=== PATIENT | female | born 1950 | race Caucasian/White ===

== ENCOUNTER 2016-03-27 20:47 | Inpatient (IN) | payer BC, MEDICARE ==
--- NOTE | ~2016-03-27 | IDS ---
Interim Discharge Summary [facility] [address] [place]. [address] NAME: ELIZA MENJIVAR : 50 STATUS : ADM IN [facility]#: [id number] AGE: 65 ADM/REG DATE : 03/27/16 MR#: [id number] REPORT SERV DATE: 04/01/16 DICTATED BY: RUDDY MARIE DATE: 04/01/16 REPORT STATUS : Draft TRANSCRIBED BY: MODL DATE: 04/01/16 ADMISSION DATE: 03/27/2016 DISCHARGE DATE: 04/01/2016 DISCHARGE DIAGNOSES: 1. Acute respiratory failure, hypercapnic. 2. Chronic obstructive pulmonary disease. 3. Diabetes. The patient required mechanical ventilation and was eventually extubated. She also had atrial fibrillation with RVR, hypothyroidism. Leukocytosis and is on antibiotics, Maxipime and vancomycin. Her white count has improved. The patient is extubated, doing well, able to swallow applesauce. Known to have diastolic heart failure. Her medications are as listed. We are reinitiating amlodipine. She is on a Catapres patch as well. Her last lab values show sodium 144, potassium 3.9, chloride 103, CO2 is 31, BUN 59, creatinine 1.0, glucose 124, magnesium 2.3, calcium 9.0. H and H 10.4 and 32, white count 14,400, on Solu- Medrol, platelet count 310,000. Blood cultures negative. We will transfer to monitor bed. Check procalcitonin, CBC, and BNP levels. Recommend tapering steroid dose. We will restart her Abilify. X-ray is clear. RP/COLBY Ruddy Marie M.D. / [id number] CC: Ibeth Quispe M.D.
--- NOTE | ~2016-03-27 | ECH ---
Echocardiogram [facility] [address] [place]. [address] NAME: ELIZA MENJIVAR : 50 STATUS : ADM IN [facility]#: [id number] AGE: 65 ADM/REG DATE : 03/27/16 MR#: [id number] REPORT SERV DATE: 04/07/16 DICTATED BY: JUDSON PARSON JR. DATE: 04/03/16 REPORT STATUS : Draft TRANSCRIBED BY: COLBY DATE: 04/03/16 ORDERING PHYSICIAN: Dr. Villegas. REFERRING: Farzana Pulido. DATA OF ACQUISITION: 04/03/2016. INDICATIONS: Atrial fibrillation, respiratory failure, history of coronary artery disease. TECH: Mane Dominguez is the RDCS. 2-D INTERPRETATION: M-mode and 2-dimensional echocardiography were performed. The left atrium was dilated at 4.7 cm compared to an aortic root diameter of 3 cm. The left ventricle was normal in size measuring 4.8 cm in end-diastole and 3.4 cm in end-systole. Overall, there appeared to be normal left ventricular systolic function without regional wall motion abnormality. Ejection fraction approximately 55%. The aortic valve was trileaflet. Mildly sclerotic mitral valve appeared to be structurally normal. The remaining cardiac valves appeared to be structurally normal. There was a trace pericardial effusion without echocardiographic evidence of hemodynamic compromise. No pleural effusion could be seen. DOPPLER/COLOR FLOW: Conventional and Doppler color flow imaging were performed. The patient was noted to be in atrial fibrillation. No A-wave was noted. There was physiologic mitral insufficiency. There was tricuspid insufficiency of a trace degree. Peak right ventricular systolic pressure was not obtained. Peak gradient across the aortic valve measured 10 mmHg. There was no aortic insufficiency. CONCLUSION: NORMAL LEFT VENTRICULAR SYSTOLIC FUNCTION. THE PATIENT WAS NOTED TO BE IN ATRIAL FIBRILLATION. NO SIGNIFICANT VALVULAR DISEASE WITH NO EVIDENCE OF AORTIC STENOSIS NOR AORTIC INSUFFICIENCY. PULMONARY HYPERTENSION WAS NOT NOTED. /COLBY Judson Parson Jr., M.D. / [id number] CC: Isi Beard
--- NOTE | ~2016-03-27 | IDS ---
Interim Discharge Summary [facility] [address] [place]. [address] NAME: ELIZA MENJIVAR : 50 STATUS : ADM IN PAT#: [id number] AGE: 65 ADM/REG DATE : 03/27/16 MR#: [id number] REPORT SERV DATE: 04/07/16 DICTATED BY: EVA STUBBS DATE: 04/07/16 REPORT STATUS : Draft TRANSCRIBED BY: MODL DATE: 04/07/16 ADMISSION DATE: 03/27/2016 DISCHARGE DATE: CURRENT HOSPITAL DIAGNOSES: 1. Hypercarbic hypercapnic respiratory failure, resolved. 2. Diabetes. 3. Common variable immunoglobulin deficiency. 4. Atrial fibrillation. 5. Chronic obstructive pulmonary disease. 6. Diastolic congestive heart failure. 7. Coronary artery disease. 8. Obstructive sleep apnea. CONSULTATIONS: Pulmonary and Critical Care and Cardiology. PROCEDURES: 1. Echocardiogram done on 04/03/2016 showing normal LV systolic function. No significant valvular disease. No evidence of aortic stenosis or aortic insufficiency. Pulmonary hypertension, not identified. EF 55%. 2. CT scan of the brain done on 03/27/2016, showing stable mild diffuse cerebral involutional changes and subtle deep white matter chronic microvascular ischemic changes. Otherwise, no acute intracranial abnormality, effusion right mastoid air cells, no air-fluid level or destruction of the underlying bone septa consistent with an indeterminate age mastoiditis pattern. CURRENT PHYSICAL FINDINGS AND HISTORY OF PRESENT ILLNESS: Please see initial dictated H and P by Dr. Quispe on 03/28/2016 and interim summary by Dr. Marie on 04/01/2016. The patient came to the floor on 04/02/2016, and I will dictate from that point. In brief, the patient has above medical history, who has had multiple previous hospitalizations for respiratory issues, was discharged from the ICU after being found unresponsive at home and required intubation. She was discharged to the floor after successfully being extubated. On 04/02/2016, we began titrating down her IV steroids. Her Nance was discontinued. Electrolytes were checked. She was noted to have atrial fibrillation, so a Cardizem drip was initiated. Echocardiogram and EKG were requested. Heparin protocol was initiated and Dr. Parson, her general farmer, was consulted. She was still receiving antibiotics at that time. Rythmol was initiated and p.o. digoxin and electrolyte protocol, which she responded to. Later that day, she was transitioned from heparin to Eliquis and her Rythmol was increased. Her Plavix was held as she continued to do well. On 04/03/2016, repeat CBC and procalcitonin were done, and her white count was 24,000, was 26,000 on admission, this was felt most likely due to her steroids as her procalcitonin on 04/02/2016 was 0.05. Her antibiotics, however, were continued. She was afraid that she may be weak and required some rehab, so PT was consulted. Her Solu-Medrol was further decreased. On 04/04/2016, Cardiology signed off. She had titrated off the Cardizem drip, was responding to p.o. medications with rate control. She complained of some constipation and milk of Mag and Dulcolax were given. She was transitioned over to p.o. prednisone, and her steroids were Interim Discharge Summary [address] [address] NAME: ELIZA MENJIVAR FATOUMATA : 50 STATUS : ADM IN PAT#: [id number] AGE: 65 ADM/REG DATE : 03/27/16 MR#: [id number] REPORT SERV DATE: 04/07/16 DICTATED BY: EVA STUBBS DATE: 04/07/16 REPORT STATUS : Draft TRANSCRIBED BY: COLBY DATE: 04/07/16 titrated down. Her vancomycin was discontinued on 04/04/2016 and her Cardizem drip was discontinued. When it became apparent she would need rehab placement, Discharge Planning was consulted. Her only other complaint at that time was some stiffness in her left shoulder. She had some mild hyperglycemia on the evening of 04/05/2016, which was treated. On 04/06/2016, she was re-evaluated and still having no significant problems. On 04/07/2016, her respiratory status is stable. Her steroids and insulin coverage will be further decreased. We will stop her Maxipime as there are no signs of recurrent infection. Her leukocytosis appears secondary to the steroids. She is currently awaiting mcc placement. PELONF/COLBY Eva Stubbs M.D. / [id number] CC: Ibeth Quispe M.D.
--- NOTE | ~2016-03-27 | CN ---
Consultation Report [address] [place] [place]. [address] NAME: ELIZA MENJIVAR : 50 STATUS : ADM IN PAT#: [id number] AGE: 65 ADM/REG DATE : 03/27/16 MR#: [id number] REPORT SERV DATE: 04/03/16 DICTATED BY: JUDSON PARSON JR. DATE: 04/02/16 REPORT STATUS : Draft TRANSCRIBED BY: MODKierra DATE: 04/02/16 CONSULTATION NOTE. DATE OF CONSULTATION: 04/02/2016 REASON FOR CONSULTATION: Atrial fibrillation with a rapid ventricular rate. HISTORY OF PRESENT ILLNESS: The patient is a 65-year-old white female with history of long- standing emphysema with continued tobacco use against medical advice, hypertension, history of coronary artery disease, who presented with hypertensive exacerbation and chronic obstructive pulmonary disease exacerbation with hypercapnic respiratory failure. She required intubation, and subsequently has been extubated and transported to the floor; however, last evening and early this morning she experienced several runs of atrial fibrillation with a rapid ventricular response. Of note, she has experienced atrial fibrillation in the past for which she has been placed on medication; however, she has largely been noncompliant. She has canceled many of her last appointments with us and during her last visit reported that she had not been taking her medication because she "felt the medication was not right for her." She does wear supplemental oxygen at home and wears supplemental oxygen while smoking. REVIEW OF SYSTEMS: A 10-point review of systems, otherwise unremarkable. ALLERGIES: TO CODEINE AND SULFACETAMIDE SODIUM. HOME MEDICATIONS: Home medications at home currently include: 1. Aspirin. 2. Clopidogrel. 3. Digoxin. 4. Imdur. 5. Klor-Con. 6. Labetalol. 7. Lasix. 8. Losartan. 9. Magnesium oxide. 10.Simvastatin. 11.Triamterene. 12.Hydrochlorothiazide. 13.Zetia. 14.Abilify. 15.Advair. 16.Albuterol. 17.Citalopram. 18.Cymbalta. 19.Doxazosin. Consultation Report [facility] [address] [place]. [address] NAME: ELIZA MENJIVAR : 50 STATUS : ADM IN PAT#: [id number] AGE: 65 ADM/REG DATE : 03/27/16 MR#: [id number] REPORT SERV DATE: 04/03/16 DICTATED BY: JUDSON PARSON JR. DATE: 04/02/16 REPORT STATUS : Draft TRANSCRIBED BY: INVIDI TechnologiesKierra DATE: 04/02/16 20.Estrogen patch. 21.Fluticasone propionate. 22.Gabapentin. 23.Humalog. 24.Lantus. 25.Lorazepam. 26.Lyrica. 27.Metformin. 28.Singulair. 29.Naprosyn. 30.Protonix. 31.Spiriva. 32.Synthroid. 33.Tramadol. PAST MEDICAL HISTORY: Past medical history is notable for: 1. History of coronary artery disease. 2. Hypertension. 3. Obesity. 4. Prior diastolic heart failure. 5. Mixed dyslipidemia. 6. Venous stasis dermatitis. 7. Diabetes mellitus, insulin dependent. 8. Anxiety. 9. Depression. 10.Asthma. 11.Hypothyroidism. 12.Pernicious anemia. 13.Paroxysmal atrial fibrillation. PAST SURGICAL HISTORY: Past surgical history is notable for: 1. CAB. 2. Total knee replacement. 3. Hysterectomy. 4. PCI. 5. Left leg and knee surgery. 6. Left hip replacement x5. SOCIAL HISTORY: Notable for continued tobacco use against medical advice, approximately 1/2 to 2 packs daily. FAMILY HISTORY: Notable for heart disease. PHYSICAL EXAMINATION: VITAL SIGNS: Temperature is 97.6, pulse 112, respirations 19, and blood pressure is 150/69 Consultation Report [address] [place]. [address] NAME: ELIZA MENJIVAR : 50 STATUS : ADM IN [facility]#: [id number] AGE: 65 ADM/REG DATE : 03/27/16 MR#: [id number] REPORT SERV DATE: 04/03/16 DICTATED BY: JUDSON PARSON JR. DATE: 04/02/16 REPORT STATUS : Draft TRANSCRIBED BY: MODKierra DATE: 04/02/16 mmHg. HEENT: Unremarkable. NECK: Supple without jugular venous distention or carotid bruits. CARDIOVASCULAR: Irregular rate and irregular rhythm. LUNGS: Notable for wheezes with diminished breath sounds at the bases. ABDOMEN: Soft. Normoactive bowel sounds. EXTREMITIES: 1+ with no pedal edema. NEUROLOGIC: She is grossly intact. LABORATORY DATA: EKG is notable for atrial fibrillation, rapid ventricular rate, nonspecific ST-T wave abnormality. Prior EKG notable for sinus rhythm, short IN interval, LVH. Sodium 142, potassium 5.4, chloride 105, bicarbonate 24, BUN 56, creatinine 0.9, glucose of 195, calcium 9.5, magnesium 2.1, and phosphorus 3.1. H and H of 11.7 and 36.1, white count 13.3, and platelet count 384,000. BNP is 133. Troponin of less than 0.02. TSH of 2.7. Chest x-ray is unremarkable. IMPRESSION: 1. A 65-year-old white female, with continued tobacco use with a history of severe emphysema with recent hypercapnic respiratory failure. 2. Known coronary artery disease, with no evidence of current ischemia. 3. Known normal LV systolic function with chronic diastolic heart failure. 4. Paroxysmal atrial fibrillation. PLANS AND RECOMMENDATIONS: 1. Rythmol 150 mg t.i.d. 2. Wean intravenous diltiazem as able. 3. Electrolyte protocol. 4. Agree with heparin. We will begin Eliquis 5 mg p.o. b.i.d. in near future. I have discussed risks of stroke versus risk of bleeding on factor X agent. 5. Tobacco cessation. 6. Further recommendations to follow. We will follow along with you. THOMPSON/COLBY Judson Parson Jr., M.D. / [id number] Consultation Report [address] [address] NAME: ELIZA MENJIVAR : 50 STATUS : ADM IN PAT#: [id number] AGE: 65 ADM/REG DATE : 03/27/16 MR#: [id number] REPORT SERV DATE: 04/03/16 DICTATED BY: JUDSON PARSON JR. DATE: 04/02/16 REPORT STATUS : Draft TRANSCRIBED BY: COLBY DATE: 04/02/16 CC: Isi Beard FNP
--- NOTE | ~2016-03-27 | HP ---
History And Physical [facility] [address] [place]. [address] NAME: ELIZA MENJIVAR : 50 STATUS : ADM IN [facility]#: [id number] AGE: 65 ADM/REG DATE : 03/27/16 MR#: [id number] REPORT SERV DATE: 03/28/16 DICTATED BY: COREY QUISPE DATE: 03/28/16 REPORT STATUS : Draft TRANSCRIBED BY: MODL DATE: 03/28/16 DATE OF ADMISSION: 03/27/2016 HISTORY OF PRESENT ILLNESS: This is a 65-year-old patient well known to our service, who has severe COPD and comes in frequently with exacerbation and hypercapnic respiratory failure, requiring intubation. Today, apparently, she was found unresponsive by her , who thought she had a low blood sugar and attempted to give her Clarke-Aid orally. She was not waking up. She was then brought into the emergency room and was found to have copious amounts of Clarke-Aid in her oropharynx. Apparently, this was suctioned and the patient was started on BiPAP to which she did not respond and then eventually went on to be intubated once again. Family is not available for any further history. As far as is known, the patient did not have any productive cough, fevers, nausea, vomiting, or diarrhea associated with her presentation. The patient was then transported to the CVICU for further care. While in the emergency room, the patient got clindamycin and Rocephin. ALLERGIES: ARE TO SULFA TO WHICH SHE DEVELOPED A RASH. CODEINE THAT CAUSES HER TO HYPERVENTILATE. HOME MEDICATIONS: Abilify 5 mg at bedtime, enteric-coated aspirin 81 mg at bedtime daily, carvedilol 3.125 mg twice daily, Plavix 75 mg daily, vitamin B12 1000 mg IM q.month, digoxin 0.125 mg daily, Cymbalta 60 mg p.o. daily, Neurontin 600 mg twice daily, hydrocodone 10 mg one to two tablets every 4 hours as needed, Imdur 60 mg daily, Synthroid 50 mcg daily, Cozaar 100 mg at bedtime, Glucophage 1000 mg twice daily, Singulair 10 mg daily, Crestor 5 mg daily, Spiriva one inhalation daily, Maxzide 37.5/25 one tablet daily, and then she does use home inhalers and receive IVIG infusions as an outpatient. The time of her last infusion is unknown. PAST MEDICAL HISTORY: Includes severe COPD, on chronic home O2. Diastolic CHF, coronary artery disease, status post [address] Parson. Hypothyroidism, hyperlipidemia, bipolar disorder, obstructive sleep apnea, noncompliant with CPAP, rheumatoid arthritis, type 2 diabetes mellitus. Status post spiral displaced humeral fracture in 2016, status post ORIF for that. History of common variable immunodeficiency. SURGICAL HISTORY: Status post hysterectomy, left hip surgery, knee surgery, bilateral carpal tunnel release. PAST MEDICAL HISTORY: The patient has a history of hyponatremia, urinary tract infection and sepsis, as well as pneumonia. SOCIAL HISTORY: The patient continues to smoke. She is , lives at home with her , has three children and five grandchildren. There is no history of any alcohol abuse. FAMILY HISTORY: Significant for congestive heart failure, COPD, diabetes mellitus, and breast cancer. History And Physical [address] [address] NAME: ELIZA MENJIVAR : 50 STATUS : ADM IN [facility]#: [id number] AGE: 65 ADM/REG DATE : 03/27/16 MR#: [id number] REPORT SERV DATE: 03/28/16 DICTATED BY: COREY QUISPE DATE: 03/28/16 REPORT STATUS : Draft TRANSCRIBED BY: COLBY DATE: 03/28/16 REVIEW OF SYSTEMS: Could not be obtained from the patient since she is orally intubated. PHYSICAL EXAMINATION: VITAL SIGNS: Heart rate is 80, sinus rhythm, blood pressure 111/53, respiratory rate is 12 to 14, temperature is 99.4 axillary. The patient currently is on 2 mcg per minute of Levophed. SKIN: Warm and dry. HEENT: Head is atraumatic and normocephalic. Pupils are equal, round, and reactive to light and accommodation. Extraocular eye movements are intact. Sclerae anicteric. Conjunctivae are pink. Nasal mucosa within normal limits. Oral mucosa is intubated. NECK: Supple without JVD, lymphadenopathy, or thyromegaly. There is an orogastric tube present. LUNGS: Show diminished breath sounds at the bases. Occasional crackles. No wheezing. CARDIAC: Reveals a regular rate and rhythm. No significant murmurs. BREASTS: Symmetrical. ABDOMEN: Obese, nontender. Bowel sounds are present, but diminished. No organosplenomegaly is appreciated. There is no pain to palpation of the abdomen. Nance is in place. RECTAL: Deferred. EXTREMITIES: Without cyanosis, clubbing. There is slight edema of the lower extremities, some mild erythema. A lot of these changes are chronic and might be some early evidence of cellulitis. NEUROLOGIC: The patient will respond to deep noxious stimuli and will follow commands. Overall, her neurologic exam is nonfocal. LABORATORY AND DIAGNOSTIC DATA: ABG in the emergency room; pH 7.18, pCO2 of 73, pO2 of 66, bicarbonate 26, 50% FiO2 and this was on BiPAP 20/8, rate of 18. Sodium 136, potassium 4.5, chloride 98, bicarb 26, BUN 21, creatinine 1.14. Blood sugar 150. Troponin less than 0.02. Lactic acid level is 1.2. UA is clear. White cell count is 26,000, hemoglobin 10, hematocrit 34, and platelet count 333,000, bands 21, procalcitonin 0.21. CT scan of the head shows no evidence of CVA or bleed. PT, INR, and PTT are still pending. Urinalysis is unremarkable. BNP 133. TSH 2.7, free T4 of 1.13. Influenza A and B swab is negative. EKG is without ST-segment elevation or depression. ASSESSMENT AND PLAN: 1. This is a 65-year-old patient with severe chronic obstructive sleep apnea, multiple admissions for chronic obstructive pulmonary disease exacerbation, who now presents with acute on chronic hypercapnic, hypoxic respiratory failure, etiology not exactly clear. In any event, the patient required intubation, mechanical ventilation. She will be started on Solu-Medrol, and continued on bronchodilator protocol. There is a possibility of aspiration pneumonia and so she will be started on cefepime and vanco. Sputum cultures have been sent. 2. Diabetes mellitus. Sliding insulin scale. 3. Known coronary artery disease. Diastolic dysfunction. Follow closely on volume status. 4. Transient hypotension could be related to sepsis and/or low volume. We will continue to volume resuscitate the patient, wean the Levophed for MAP greater than 65 and ask History And Physical [address] [place]. [address] NAME: MENJIVARELIZABACILIO HAM : [birth year] STATUS : ADM IN [facility]#: [id number] AGE: 65 ADM/REG DATE : 03/27/16 MR#: [id number] REPORT SERV DATE: 03/28/16 DICTATED BY: COREY QUISPE DATE: 03/28/16 REPORT STATUS : Draft TRANSCRIBED BY: COLBY DATE: 03/28/16 for a PICC line placement later this morning. 5. Hyperlipidemia. Continue Crestor. 6. Continue Plavix and check digoxin level. 7. Deep vein thrombosis prophylaxis will be with Lovenox. 8. GI prophylaxis will be with Protonix. 9. Common variable immunodeficiency. Check with family when the last IVIG was given. 10.B12 deficiency, the patient gets monthly B12 shots. The patient is in critical condition, requiring intubation and mechanical ventilation and now has hypotension and requires frequent vent management for respiratory failure. Close neurologic monitoring. May be exhibiting early signs of septic shock. She is in need of vasoactive manipulations, volume resuscitation, frequent ventilator manipulation, hemodynamic assessment, and assessment and treatment of complex metabolic derangement. /COLBY Corey Quispe M.D. / [id number] CC: Corey Quispe M.D.
--- NOTE | ~2016-03-27 | DS ---
Discharge Summary [facility] [address] [place]. [address] NAME: ELIZA MENJIVAR : 50 STATUS : DIS IN PAT#: [id number] AGE: 65 ADM/REG DATE : 03/27/16 MR#: [id number] REPORT SERV DATE: 04/10/16 DICTATED BY: CELESTINO BLACKMON DATE: 04/09/16 REPORT STATUS : Draft TRANSCRIBED BY: MODL DATE: 04/09/16 ADMISSION DATE: 03/27/2016 DISCHARGE DATE: 04/09/2016 DISCHARGE DIAGNOSES: 1. Acute hypercapnic respiratory failure. 2. Acute chronic obstructive pulmonary disease exacerbation. 3. Atrial fibrillation rapid ventricular response. 4. Chronic diastolic heart failure. 5. Ongoing tobacco use obstructive sleep apnea. 6. Common variable immunodeficiency. 7. Diabetes type 2 with a hemoglobin A1c of 5.9. 8. History of coronary artery disease. DISCHARGE MEDICATIONS: Amlodipine 5 mg daily, Abilify 5 mg at bedtime, aspirin 81 mg daily, Coreg 3.125 mg twice a day, digoxin 125 mcg daily, Cymbalta 60 mg daily, gabapentin 600 mg p.o. twice a day, Synthroid 50 mcg daily, insulin NovoLog level 2 sliding scale before meals and at bedtime, losartan 50 mg daily, Singulair 10 mg daily, Imdur ER 60 mg daily, MiraLAX one packet twice a day, Rythmol 225 mg every eight hours, Catapres patch 0.2 mg topically every seven days, prednisone 20 mg daily for five more days, albuterol nebulizers every four hours p.r.n., Dulera 200/5 five puffs inhaled twice a day, Levemir 25 units subcutaneously twice a day, Tylenol 650 mg p.r.n., Mylanta p.r.n., Dulcolax 10 mg tablets p.r.n. for constipation hypoglycemia protocol, metformin 1000 mg twice a day, [place] 10/325 one tablet every four hours p.r.n. for pain, vitamin B12 1000 mcg every 30 days, Crestor 5 mg daily, Spiriva one capsule inhaled daily, triamterene/hydrochlorothiazide 37.5/25 one tablet daily. HISTORY OF PRESENT ILLNESS: Pleasant 65-year-old white female, originally admitted by the [facility]. Please see the initial H and P of Dr. Ibeth Quispe as the patient was intubated. Please see the interim discharge summary of Dr. Carlos Marie as the patient was transferred to the hospitalist Service and care was assumed by Dr. Stan Villegas beginning on 04/02/2016. CONSULTS DURING THIS ADMISSION: Include Cardiology, Dr. Elsa Parson as well. HOSPITAL COURSE: The patient's respiratory status did continue to improve and her oxygen was able to be weaned down. Please also see the interim discharge summary of Dr. Stan Villegas as this discharge summary will cover the dates of 04/08/2016 to 04/09/2016. The patient was able to be weaned down to room air, was doing quite well. Disposition was to transfer to [facility] to have follow ups with her ferry engineer, Dr. Parson, in four weeks, to follow up with her primary care as scheduled, and follow up with tamping machine operator, Dr. Domínguez, as scheduled. Counseled the need for complete tobacco cessation, which the patient was in agreement with. The patient became approved for transfer to [facility] on 04/09/2016, and was discharged there with the above medication regimen, followup plan and of note, she had an echocardiogram showing a normal left ventricular systolic function. No significant valvular disease. No evidence of aortic stenosis. Some pulmonary hypertension was noted. Ejection fraction of 55%. Discharge Summary [address] [address] NAME: ELIZA MENJIVAR : 50 STATUS : DIS IN PAT#: [id number] AGE: 65 ADM/REG DATE : 03/27/16 MR#: [id number] REPORT SERV DATE: 04/10/16 DICTATED BY: CELESTINO BLACKMON DATE: 04/09/16 REPORT STATUS : Draft TRANSCRIBED BY: MODL DATE: 04/09/16 Greater than 30 minutes was spent on this discharge for medication teaching, followup planning, and further disposition. [facility] [place] Celestino Blackmon NP / [id number] CC: Oralia Hopkins M.D.
--- NOTE | ~2016-03-27 | HP ---
History And Physical [place] [id number] [place] [address] NAME: ELIZA MENJIVAR : 50 STATUS : ADM IN [facility]#: [id number] AGE: 65 ADM/REG DATE : 03/27/16 MR#: [id number] REPORT SERV DATE: 03/28/16 DICTATED BY: COREY QUISPE DATE: 03/28/16 REPORT STATUS : Draft TRANSCRIBED BY: MODL DATE: 03/28/16 DATE OF ADMISSION: 03/27/2016 ADDENDUM: Charge for critical care time will be 40 minutes, commencing at 2 a.m. and ending at 02:55 a.m. /COLBY Corey Quispe M.D. / [id number] CC: Corey Quispe M.D.
[2016-03-27 18:52] LABS: ALLENS TEST Pos; BE (BASE EXCESS) -0.9 MEQ/L (0 +/- 2.5); CARBOXYHEMOGLOBIN 4.9 % (0-3); DEVICE Nasal Cannula 4 lpm; HCO3 (ACTUAL BICARBONATE) 27.8 MEQ/L (23-27); HEMOBLOGIN CONTENT 11.5 G/DL (12-16); INSTRUMENT SERIAL # 8087; METHEMOGLOBIN 0.2 % (0-3); OPERATOR ID 17589; PCO2 (CO2 TENSION) 68 MMHG (35-45); PO2 (O2 TENSION) 59 MMHG (79-93); SAMPLE Arterial; pH 7.23 (7.37-7.43)
[2016-03-27 20:09] LABS: BE (BASE EXCESS) -2.8 MEQ/L (0 +/- 2.5); BIPAP 20/8 cm.H2O; CARBOXYHEMOGLOBIN 4.6 % (0-3); HCO3 (ACTUAL BICARBONATE) 26.7 MEQ/L (23-27); HEMOBLOGIN CONTENT 11.3 G/DL (12-16); INSTRUMENT SERIAL # 8087; METHEMOGLOBIN 0.2 % (0-3); OPERATOR ID 23712; PCO2 (CO2 TENSION) 73 MMHG (35-45); PO2 (O2 TENSION) 66 MMHG (79-93); SAMPLE Arterial; pH 7.18 (7.37-7.43)
[~2016-03-27 20:47] MED LIST: *UNABLE1; *UNABLE2; ABILIFY10 PO; ABILIFY5 PO; ADVAIR INH; ADVAIR100 INH; ADVAIR250 INH; ALBUTEROL 2.5 MG/3 ML INH; ALEVE220 MG PO; ANOROELLIPTA INH; ASA5GR PO; ASAB PO; ASABAYER PO; ASAEC PO; ATV1 PO; AUG875 PO; B1100 PO; B121000P IM; B121000P IM/SC; B121000P SC; CAP25 PO; CARD30 PO; CARDIZEM LA120 MG PO; CARDURA8 MG PO; CATAPRES3; CATAPRES3 TOP; CEFT2 PO; CEFT5 PO; CELEXA20 PO; CELEXA40 MG PO; CIP5 PO; CLONIDINE PATCH TOP; COREG3 PO; COVARYX PO; COZ25 PO; COZ50 PO; COZAAR100 MG PO; CRESTOR5 MG PO; CYMBALTA60 PO; Cardizem; DIGITEK0.125 MG PO; DIGITEK0.25 MG PO; DILACOR XR PO; DILT-XR120 MG PO; DOLOPHINE10 MG PO; DUONEB INH; Deltasone; ENDOCET1 TA3 PO; ENDOCET1 TA4 PO; ENDOCET1 TAB PO; ESTRATESHS PO; FISH OIL 500MG PO; FISH-EPA1000 MG PO; FLONASE NAS; FLONASE NASAL S16 GM NAS; FLUCON150 PO; GLUCOPHAGE1000 MG PO; GLUCPH PO; HABIT14 TOP; HALF81 PO; HUMALOGPEN SC; HYCODAN1 M1 PO; IMDUR30 PO; IMDUR60 PO; ISORDIL; ISORDIL10 PO; K-TABS10 MEQ PO; KADIANSR30 PO; KDUR10 PO; KLOR-CON 1010 MEQ PO; KLOR-CON M1010 MEQ PO; L20 PO; L40 PO; L80 PO; LAN125 PO; LAN25 PO; LANTUS SC; LANTUSCART SC; LEVOTHYROXIN50 MCG PO; LEXAPRO; LEXAPRO20 PO; LISINOPRIL40 MG PO; LOP50 PO; LOVAZA1 GM PO; LYRICA75 PO; Lanoxin; Lasix; Lexapro; MAGOX4 PO; MAX25 PO; MICRO-K10 MEQ PO; MOBIC15 MG PO; MORPHINE; MSCONT15 PO; MUCINEX DM1 TAB OR; MUCINEX600 MG PO; MULTIPLE VIT PO; MULTIVIT/MIN PO; MULTIVITAMI1 PO; MVI PO; Mobic; NAP500 PO; NEUR100 PO; NEUR300 PO; NEUR600 PO; NEUR800 PO; NITROSPRAY SL; NITROSTAT0.4 MG SL; NORCO1 TAB PO; NORV10 PO; NORV5 PO; NYS500UDL PO; Neurontin PO; OMEGA 3550 MG PO; P1 PO; P10 PO; PATANOL OPH; PCET PO; PERCOCET1 TA4 PO; PLAVIX PO; PLAVIX300 MG PO; POTASSIUM CHLORIDE; POTASSIUM CHLORIDE PO; PR25 PO; PRAVAC PO; PREV30 PO; PRILO PO; PRIN10 PO; PRIN20 PO; PROMEGA PO; PROTONIX PO; PROVENTIL IN; PROVENTSOL INH; PROZ10 PO; PROZAC40 MG PO; PULRESP.5 PO; Percocet; Plavix; Potassium; Prinivil; Prozac; SAVELLA50 MG PO; SIMVASTATIN PO; SINGULAIR1 PO; SINGULAIR5 PO; SPIRIVA INH; STERAPRED DS10 MG; SYN.05 PO; Singulair; TEKTURNA300 MG PO; TRAN200 PO; ULTRAM50 PO; V5 PO; VENTOLIN HFA INH; VOLTAREN1 % TOP; VYTORIN 10/20 T1 TAB PO; XANAX1 MG PO; XYZAL5 MG PO; Z5 PO; ZEBETA5 PO; ZETIA PO; ZIAC10 PO; ZOCOR10 PO; ZOCOR20 PO; ZOCOR40 PO; Zocor; [UNRECOGNIZED DRUG - CODE] PO; [UNRECOGNIZED DRUG - OTHER]
[2016-03-27 20:53] LABS: WBC (NOT ORDERED) (RFLEX) 0 (0-5)
[2016-03-27 21:02] LABS: CALCIUM, SERUM 8.8 MG/DL (8.5-10.4); CHEST PAIN PROFILE TAT 0 Hrs 20 Mins; CHLORIDE, SERUM 98 MMOL/L (96-112); CO2 (CARBON DIOXIDE) 26 MMOL/L (24-34); CREATININE 1.14 MG/DL (0.55-1.02); GFR AFRICAN AMERICAN 58 ML/MIN (>=60); GFR NON AFRICAN AMERICAN 50 ML/MIN (>=60); POTASSIUM, SERUM 4.5 MMOL/L (3.5-5.3); SODIUM, SERUM 136 MMOL/L (135-148); TROPONIN I <0.02 NG/ML (<0.05)
[2016-03-27] MEDS ORDERED: PLAVIX PO (21:02)
[2016-03-27] MEDS ORDERED: ABILIFY5 PO (21:02)
[2016-03-27] MEDS ORDERED: COREG3 PO (21:02)
[2016-03-27] MEDS ORDERED: HALF81 PO (21:02)
[2016-03-27 21:03] LABS: BUN (BLOOD UREA NITROGEN) 21 MG/DL (6-23); GLUCOSE, SERUM 150 MG/DL (60-99)
[2016-03-27] MEDS ORDERED: IMDUR60 PO (21:03)
[2016-03-27] MEDS ORDERED: B121000P IM (21:03)
[2016-03-27] MEDS ORDERED: NEUR600 PO (21:03)
[2016-03-27] MEDS ORDERED: LAN125 PO (21:03)
[2016-03-27] MEDS ORDERED: CYMBALTA60 PO (21:03)
[2016-03-27] MEDS ORDERED: NORCO1 TAB PO (21:03)
[2016-03-27 21:04] LABS: LACTATE 1.7 MMOL/L (0.3-2.4)
[2016-03-27] MEDS ORDERED: CRESTOR5 MG PO (21:04)
[2016-03-27] MEDS ORDERED: SINGULAIR1 PO (21:04)
[2016-03-27] MEDS ORDERED: SYN.05 PO (21:04)
[2016-03-27] MEDS ORDERED: GLUCOPHAGE1000 MG PO (21:04)
[2016-03-27] MEDS ORDERED: COZAAR100 MG PO (21:04)
[2016-03-27] MEDS ORDERED: SPIRIVA INH (21:05)
[2016-03-27] MEDS ORDERED: DULERA (21:05)
[2016-03-27] MEDS ORDERED: MAX25 PO (21:05)
[2016-03-27 21:08] LABS: ASCORBIC ACID (UR NOT ORDER) NEG (NEG); BILIRUBIN, URINE NEGATIVE (NEG); ER URINALYSIS TAT 0 Hrs 15 Mins; KETONE, URINE NEGATIVE (NEG); LEUKOCYTE ESTERASE(NOT OR NEG (NEG); NITRITE (URINE) NEG (NEG)
[2016-03-27 21:56] LABS: BASOPHILS 0.1 %; BASOPHILS ABSOLUTE 0.03 10/3/uL (0.0-0.16); EOSINOPHILS 0.7 %; EOSINOPHILS ABSOLUTE 0.18 10/3/uL (0.0-0.53); HEMOGLOBIN 10.4 g/dL (12.0-16.0); IMMATURE GRANULOCYTES 0.5 %; IMMATURE GRANULOCYTES ABSOLUTE 0.14 10/3/uL (0.0-0.11); LYMPHOCYTES 5.8 %; LYMPHOCYTES ABSOLUTE 1.54 10/3/uL (0.67-4.30); MEAN CORPUSCULAR HEMOGLOB 28.6 pg (26.0-34.0); MEAN PLATELET VOLUME 9.8 fL (9.2-13.0); MONOCYTES 2.2 %; MONOCYTES ABSOLUTE 0.59 10/3/uL (0.21-1.20); NEUTROPHILS 90.7 %; NEUTROPHILS ABSOLUTE 23.86 10/3/uL (2.02-8.40); RBC DISTRIBUTION WIDTH 15.8 % (12.0-16.0); RED CELL COUNT 3.64 10/6/uL (4.0-5.6)
[2016-03-27 22:01] LABS: ER CBC TAT 0 Hrs 11 Mins; HEMATOCRIT 34.5 % (36.0-48.0); MEAN CORPUS HGB CONC 30.1 g/dL (32.0-36.0); MEAN CORPUSCULAR VOLUME 94.8 fL (80-100); PLATELET COUNT 333 10/3/uL (150-400); WHITE BLOOD CELLS 26.3 10/3/uL (4.5-10.5)
[2016-03-27 22:02] LABS: MANUAL DIFF NO %
[2016-03-27 22:21] LABS: BAND NEUTROPHILS 21 %; ER DIFF TAT 0 Hrs 31 Mins; LYMPHOCYTES 3 %; LYMPHOCYTES ABSOLUTE (CALC) 0.79 10/3/uL (0.67-4.30); MONOCYTES 3 %; MONOCYTES ABSOLUTE (CALC) 0.79 10/3/uL (0.21-1.20); NEUTROPHILS ABSOLUTE (CALC) 24.72 10/3/uL (2.02-8.40); PLATELET ESTIMATE ADQ (ADEQUATE); RBC MORPHOLOGY NORM (NORMAL); SEGMENTED NEUTROPHIL (0) 73 %; TOTAL NUCLEATED CELLS 100
[2016-03-27 22:43] LABS: PROCALCITONIN 0.21 ng/mL (<0.5)
[2016-03-28 00:15] LABS: ALLENS TEST Pos; BE (BASE EXCESS) 2.7 MEQ/L (0 +/- 2.5); CARBOXYHEMOGLOBIN 1.1 % (0-3); HCO3 (ACTUAL BICARBONATE) 29.9 MEQ/L (23-27); HEMOBLOGIN CONTENT 10.4 G/DL (12-16); INSTRUMENT SERIAL # 8087; METHEMOGLOBIN 0.3 % (0-3); MODE CMV; O2 CONTENT 15.7 VOL% (18-24); OPERATOR ID 17589; PCO2 (CO2 TENSION) 61 MMHG (35-45); PO2 (O2 TENSION) 454 MMHG (79-93); SAMPLE Arterial; TIDAL VOLUME 500 ML; pH 7.31 (7.37-7.43)
[2016-03-28 00:26] LABS: FREE T4 1.13 NG/DL (0.76-1.46)
[2016-03-28 00:27] LABS: ULTRASENSITIVE TSH 2.73 MCIU/ML (0.358-3.740)
[2016-03-28 02:04] LABS: INFLUENZA A SCREEN NEGATIVE (NEGATIVE); INFLUENZA B SCREEN NEGATIVE (NEGATIVE)
[2016-03-28 04:23] LABS: HEMATOCRIT 31.6 % (36.0-48.0); HEMOGLOBIN 9.9 g/dL (12.0-16.0); MANUAL DIFF YES %; MEAN CORPUS HGB CONC 31.3 g/dL (32.0-36.0); MEAN CORPUSCULAR HEMOGLOB 29.5 pg (26.0-34.0); MEAN PLATELET VOLUME 10.4 fL (9.2-13.0); PLATELET COUNT 320 10/3/uL (150-400); RBC DISTRIBUTION WIDTH 16.1 % (12.0-16.0); RED CELL COUNT 3.36 10/6/uL (4.0-5.6)
[2016-03-28 04:49] LABS: BUN (BLOOD UREA NITROGEN) 22 MG/DL (6-23); CALCIUM, SERUM 8.4 MG/DL (8.5-10.4); CHLORIDE, SERUM 102 MMOL/L (96-112); CO2 (CARBON DIOXIDE) 26 MMOL/L (24-34); CREATININE 1.29 MG/DL (0.55-1.02); DIGOXIN 1.3 NG/ML (0.8-2.0); GFR AFRICAN AMERICAN 50 ML/MIN (>=60); GFR NON AFRICAN AMERICAN 43 ML/MIN (>=60); GLUCOSE, SERUM 125 MG/DL (60-99); POTASSIUM, SERUM 4.3 MMOL/L (3.5-5.3); SODIUM, SERUM 139 MMOL/L (135-148)
[2016-03-28 06:30] LABS: BAND NEUTROPHILS 26 %; IMMATURE GRANS ABSOLUTE (CALC) 0.21 10/3/uL (0.0-0.11); LYMPHOCYTES 6 %; LYMPHOCYTES ABSOLUTE (CALC) 1.26 10/3/uL (0.67-4.30); METAMYELOCYTES 1 %; NEUTROPHILS ABSOLUTE (CALC) 19.53 10/3/uL (2.02-8.40); PLATELET ESTIMATE ADQ (ADEQUATE); POLYCHROMASIA 1+ (2-5/OIF) (0-1/OIF); SEGMENTED NEUTROPHIL (0) 67 %; TOTAL NUCLEATED CELLS 100; TOXIC GRANULATION 1+
[2016-03-28 22:07] LABS: BASOPHILS 0.1 %; BASOPHILS ABSOLUTE 0.01 10/3/uL (0.0-0.16); EOSINOPHILS 0 %; HEMATOCRIT 29.3 % (36.0-48.0); HEMOGLOBIN 9.3 g/dL (12.0-16.0); IMMATURE GRANULOCYTES 0.7 %; LYMPHOCYTES 5.1 %; LYMPHOCYTES ABSOLUTE 0.75 10/3/uL (0.67-4.30); MEAN CORPUS HGB CONC 31.7 g/dL (32.0-36.0); MEAN CORPUSCULAR HEMOGLOB 28.8 pg (26.0-34.0); MEAN CORPUSCULAR VOLUME 90.7 fL (80-100); MEAN PLATELET VOLUME 10.2 fL (9.2-13.0); NEUTROPHILS 92.1 %; NEUTROPHILS ABSOLUTE 13.61 10/3/uL (2.02-8.40); PLATELET COUNT 284 10/3/uL (150-400); RBC DISTRIBUTION WIDTH 15.4 % (12.0-16.0); RED CELL COUNT 3.23 10/6/uL (4.0-5.6); WHITE BLOOD CELLS 14.8 10/3/uL (4.5-10.5)
[2016-03-28 22:08] LABS: MANUAL DIFF NO %
[2016-03-28 22:26] LABS: BUN (BLOOD UREA NITROGEN) 22 MG/DL (6-23); CALCIUM, SERUM 8.8 MG/DL (8.5-10.4); CHLORIDE, SERUM 102 MMOL/L (96-112); CO2 (CARBON DIOXIDE) 27 MMOL/L (24-34); CREATININE 1.03 MG/DL (0.55-1.02); GFR AFRICAN AMERICAN 66 ML/MIN (>=60); GFR NON AFRICAN AMERICAN 57 ML/MIN (>=60); GLUCOSE, SERUM 227 MG/DL (60-99); POTASSIUM, SERUM 3.3 MMOL/L (3.5-5.3); SODIUM, SERUM 140 MMOL/L (135-148)
[2016-03-28 22:35] LABS: PLATELET ESTIMATE ADQ (ADEQUATE)
[2016-03-28 22:39] LABS: RBC MORPHOLOGY NORM (NORMAL)
[2016-03-29 07:36] LABS: BASOPHILS 0.1 %; BASOPHILS ABSOLUTE 0.01 10/3/uL (0.0-0.16); EOSINOPHILS 0 %; HEMOGLOBIN 8.4 g/dL (12.0-16.0); IMMATURE GRANULOCYTES 0.7 %; IMMATURE GRANULOCYTES ABSOLUTE 0.08 10/3/uL (0.0-0.11); LYMPHOCYTES 5.5 %; LYMPHOCYTES ABSOLUTE 0.67 10/3/uL (0.67-4.30); MEAN CORPUS HGB CONC 32.3 g/dL (32.0-36.0); MEAN CORPUSCULAR HEMOGLOB 28.5 pg (26.0-34.0); MEAN CORPUSCULAR VOLUME 88.1 fL (80-100); MEAN PLATELET VOLUME 10.2 fL (9.2-13.0); MONOCYTES 2.5 %; NEUTROPHILS 91.2 %; NEUTROPHILS ABSOLUTE 11.05 10/3/uL (2.02-8.40); PLATELET COUNT 244 10/3/uL (150-400); RBC DISTRIBUTION WIDTH 15.7 % (12.0-16.0); RED CELL COUNT 2.95 10/6/uL (4.0-5.6); WHITE BLOOD CELLS 12.1 10/3/uL (4.5-10.5)
[2016-03-29 07:37] LABS: A/G RATIO 0.6 (0.7-1.9); ALKALINE PHOSPHATASE 106 U/L (45-117); BUN (BLOOD UREA NITROGEN) 21 MG/DL (6-23); CHLORIDE, SERUM 107 MMOL/L (96-112); GFR AFRICAN AMERICAN 78 ML/MIN (>=60); GFR NON AFRICAN AMERICAN 67 ML/MIN (>=60); GLOBULIN 3.6 G/DL (2.5-4.1); PHOSPHORUS, SERUM 2.3 MG/DL (2.5-4.5); SGOT(AST) 7 U/L (5-40); SGPT(ALT) 16 U/L (5-65); SODIUM, SERUM 142 MMOL/L (135-148); TOTAL BILIRUBIN 0.4 MG/DL (0-1.2); TOTAL PROTEIN 5.6 G/DL (6.0-8.5)
[2016-03-29 07:38] LABS: CALCIUM, SERUM 7.7 MG/DL (8.5-10.4); CO2 (CARBON DIOXIDE) 22 MMOL/L (24-34); GLUCOSE, SERUM 273 MG/DL (60-99)
[2016-03-29 07:39] LABS: MANUAL DIFF NO %
[2016-03-29 20:02] LABS: CHLORIDE, SERUM 104 MMOL/L (96-112); CO2 (CARBON DIOXIDE) 25 MMOL/L (24-34); CREATININE 1.11 MG/DL (0.55-1.02); GFR AFRICAN AMERICAN 60 ML/MIN (>=60); GFR NON AFRICAN AMERICAN 52 ML/MIN (>=60); GLUCOSE, SERUM 304 MG/DL (60-99); POTASSIUM, SERUM 3.6 MMOL/L (3.5-5.3); SODIUM, SERUM 140 MMOL/L (135-148)
[2016-03-29 20:03] LABS: BUN (BLOOD UREA NITROGEN) 27 MG/DL (6-23); CALCIUM, SERUM 8.7 MG/DL (8.5-10.4)
[2016-03-30 03:31] LABS: BASOPHILS 0.2 %; BASOPHILS ABSOLUTE 0.02 10/3/uL (0.0-0.16); EOSINOPHILS 0 %; HEMOGLOBIN 9.1 g/dL (12.0-16.0); IMMATURE GRANULOCYTES 2.8 %; IMMATURE GRANULOCYTES ABSOLUTE 0.32 10/3/uL (0.0-0.11); LYMPHOCYTES 6.8 %; LYMPHOCYTES ABSOLUTE 0.79 10/3/uL (0.67-4.30); MEAN CORPUS HGB CONC 31.5 g/dL (32.0-36.0); MEAN CORPUSCULAR HEMOGLOB 28.3 pg (26.0-34.0); MEAN CORPUSCULAR VOLUME 89.8 fL (80-100); MEAN PLATELET VOLUME 10.4 fL (9.2-13.0); MONOCYTES ABSOLUTE 0.46 10/3/uL (0.21-1.20); NEUTROPHILS 86.2 %; NEUTROPHILS ABSOLUTE 10.02 10/3/uL (2.02-8.40); RBC DISTRIBUTION WIDTH 15.6 % (12.0-16.0); RED CELL COUNT 3.22 10/6/uL (4.0-5.6); WHITE BLOOD CELLS 11.6 10/3/uL (4.5-10.5)
[2016-03-30 03:32] LABS: HEMATOCRIT 28.9 % (36.0-48.0); MANUAL DIFF NO %; PLATELET COUNT 334 10/3/uL (150-400)
[2016-03-30 03:42] LABS: A/G RATIO 0.6 (0.7-1.9); ALBUMIN 2.4 G/DL (3.5-5.0); ALKALINE PHOSPHATASE 106 U/L (45-117); CALCIUM, SERUM 8.8 MG/DL (8.5-10.4); CHLORIDE, SERUM 104 MMOL/L (96-112); CO2 (CARBON DIOXIDE) 23 MMOL/L (24-34); CREATININE 1.08 MG/DL (0.55-1.02); GFR AFRICAN AMERICAN 62 ML/MIN (>=60); GFR NON AFRICAN AMERICAN 54 ML/MIN (>=60); GLUCOSE, SERUM 312 MG/DL (60-99); PHOSPHORUS, SERUM 2.9 MG/DL (2.5-4.5); SGOT(AST) 6 U/L (5-40); SGPT(ALT) 17 U/L (5-65); SODIUM, SERUM 138 MMOL/L (135-148); TOTAL PROTEIN 6.4 G/DL (6.0-8.5)
[2016-03-30 03:44] LABS: BUN (BLOOD UREA NITROGEN) 31 MG/DL (6-23); TOTAL BILIRUBIN 1.4 MG/DL (0-1.2)
[2016-03-30 14:00] LABS: POTASSIUM, SERUM 3.4 MMOL/L (3.5-5.3)
[2016-03-31 01:27] LABS: CHLORIDE, SERUM 100 MMOL/L (96-112); CO2 (CARBON DIOXIDE) 27 MMOL/L (24-34); CREATININE 1.22 MG/DL (0.55-1.02); GFR AFRICAN AMERICAN 54 ML/MIN (>=60); GFR NON AFRICAN AMERICAN 46 ML/MIN (>=60); GLUCOSE, SERUM 282 MG/DL (60-99); POTASSIUM, SERUM 3.5 MMOL/L (3.5-5.3); SODIUM, SERUM 138 MMOL/L (135-148)
[2016-03-31 01:29] LABS: BUN (BLOOD UREA NITROGEN) 44 MG/DL (6-23)
[2016-03-31 06:05] LABS: HEMOGLOBIN 10.3 g/dL (12.0-16.0); MEAN CORPUS HGB CONC 31.8 g/dL (32.0-36.0); MEAN CORPUSCULAR HEMOGLOB 27.9 pg (26.0-34.0); MEAN CORPUSCULAR VOLUME 87.8 fL (80-100); MEAN PLATELET VOLUME 10.5 fL (9.2-13.0); PLATELET COUNT 371 10/3/uL (150-400); RBC DISTRIBUTION WIDTH 15.6 % (12.0-16.0); RED CELL COUNT 3.69 10/6/uL (4.0-5.6)
[2016-03-31 06:11] LABS: HEMATOCRIT 32.4 % (36.0-48.0); MANUAL DIFF YES %
[2016-03-31 06:16] LABS: CHLORIDE, SERUM 99 MMOL/L (96-112); CO2 (CARBON DIOXIDE) 26 MMOL/L (24-34); CREATININE 1.28 MG/DL (0.55-1.02); GFR AFRICAN AMERICAN 51 ML/MIN (>=60); GFR NON AFRICAN AMERICAN 44 ML/MIN (>=60); GLUCOSE, SERUM 260 MG/DL (60-99); PHOSPHORUS, SERUM 3.1 MG/DL (2.5-4.5); POTASSIUM, SERUM 3.6 MMOL/L (3.5-5.3); SODIUM, SERUM 139 MMOL/L (135-148); VANCOMYCIN TROUGH 28.6 MCG/ML (10.0-20.0)
[2016-03-31 06:18] LABS: ALBUMIN 3.1 G/DL (3.5-5.0); BUN (BLOOD UREA NITROGEN) 48 MG/DL (6-23)
[2016-03-31 06:35] LABS: BAND NEUTROPHILS 7 %; IMMATURE GRANS ABSOLUTE (CALC) 0.24 10/3/uL (0.0-0.11); LYMPHOCYTES 9 %; LYMPHOCYTES ABSOLUTE (CALC) 1.08 10/3/uL (0.67-4.30); METAMYELOCYTES 2 %; NEUTROPHILS ABSOLUTE (CALC) 10.68 10/3/uL (2.02-8.40); PLATELET ESTIMATE ADQ (ADEQUATE); SEGMENTED NEUTROPHIL (0) 82 %; TOTAL NUCLEATED CELLS 100
[2016-03-31 06:36] LABS: POLYCHROMASIA 1+ (2-5/OIF) (0-1/OIF); TOXIC GRANULATION 1+
[2016-03-31 12:38] LABS: ALLENS TEST Pos; BE (BASE EXCESS) -1.1 MEQ/L (0 +/- 2.5); CARBOXYHEMOGLOBIN 0.1 % (0-3); DEVICE NC; HCO3 (ACTUAL BICARBONATE) 23.7 MEQ/L (23-27); HEMOBLOGIN CONTENT 11.2 G/DL (12-16); INSTRUMENT SERIAL # 11843; METHEMOGLOBIN 0.4 % (0-3); O2 CONTENT 15.2 VOL% (18-24); PCO2 (CO2 TENSION) 40 MMHG (35-45); PO2 (O2 TENSION) 90 MMHG (79-93); SAMPLE Arterial; pH 7.39 (7.37-7.43)
[2016-03-31 16:13] LABS: CALCIUM, SERUM 9.2 MG/DL (8.5-10.4); CHLORIDE, SERUM 101 MMOL/L (96-112); CO2 (CARBON DIOXIDE) 29 MMOL/L (24-34); CREATININE 1.15 MG/DL (0.55-1.02); GFR AFRICAN AMERICAN 58 ML/MIN (>=60); GFR NON AFRICAN AMERICAN 50 ML/MIN (>=60); POTASSIUM, SERUM 3.6 MMOL/L (3.5-5.3); SODIUM, SERUM 141 MMOL/L (135-148)
[2016-03-31 16:15] LABS: BUN (BLOOD UREA NITROGEN) 54 MG/DL (6-23); GLUCOSE, SERUM 204 MG/DL (60-99)
[2016-04-01 03:28] LABS: HEMATOCRIT 32.1 % (36.0-48.0); HEMOGLOBIN 10.4 g/dL (12.0-16.0); MEAN CORPUS HGB CONC 32.4 g/dL (32.0-36.0); MEAN CORPUSCULAR HEMOGLOB 28.3 pg (26.0-34.0); MEAN CORPUSCULAR VOLUME 87.5 fL (80-100); PLATELET COUNT 350 10/3/uL (150-400); RBC DISTRIBUTION WIDTH 15.1 % (12.0-16.0); RED CELL COUNT 3.67 10/6/uL (4.0-5.6); WHITE BLOOD CELLS 14.4 10/3/uL (4.5-10.5)
[2016-04-01 03:33] LABS: MANUAL DIFF YES %
[2016-04-01 03:44] LABS: BUN (BLOOD UREA NITROGEN) 59 MG/DL (6-23); CHLORIDE, SERUM 103 MMOL/L (96-112); CO2 (CARBON DIOXIDE) 31 MMOL/L (24-34); GFR AFRICAN AMERICAN 68 ML/MIN (>=60); GFR NON AFRICAN AMERICAN 59 ML/MIN (>=60); GLUCOSE, SERUM 124 MG/DL (60-99); POTASSIUM, SERUM 3.9 MMOL/L (3.5-5.3); SODIUM, SERUM 144 MMOL/L (135-148)
[2016-04-01 03:54] LABS: BAND NEUTROPHILS 4 %; IMMATURE GRANS ABSOLUTE (CALC) 1.01 10/3/uL (0.0-0.11); LYMPHOCYTES 16 %; METAMYELOCYTES 6 %; MONOCYTES 12 %; MONOCYTES ABSOLUTE (CALC) 1.73 10/3/uL (0.21-1.20); MYELOCYTES 1 %; NEUTROPHILS ABSOLUTE (CALC) 9.36 10/3/uL (2.02-8.40); PLATELET ESTIMATE ADQ (ADEQUATE); RBC MORPHOLOGY NORM (NORMAL); SEGMENTED NEUTROPHIL (0) 61 %; TOTAL NUCLEATED CELLS 100
[2016-04-01 17:55] LABS: BUN (BLOOD UREA NITROGEN) 57 MG/DL (6-23); CALCIUM, SERUM 9.2 MG/DL (8.5-10.4); CHLORIDE, SERUM 104 MMOL/L (96-112); CO2 (CARBON DIOXIDE) 27 MMOL/L (24-34); CREATININE 0.91 MG/DL (0.55-1.02); GFR AFRICAN AMERICAN 77 ML/MIN (>=60); GFR NON AFRICAN AMERICAN 66 ML/MIN (>=60); POTASSIUM, SERUM 4.6 MMOL/L (3.5-5.3); SODIUM, SERUM 144 MMOL/L (135-148)
[2016-04-01 17:57] LABS: GLUCOSE, SERUM 177 MG/DL (60-99)
[2016-04-02 07:47] LABS: HEMOGLOBIN 11.7 g/dL (12.0-16.0); MEAN CORPUS HGB CONC 32.4 g/dL (32.0-36.0); MEAN CORPUSCULAR HEMOGLOB 28.6 pg (26.0-34.0); MEAN CORPUSCULAR VOLUME 88.3 fL (80-100); PLATELET COUNT 384 10/3/uL (150-400); RED CELL COUNT 4.09 10/6/uL (4.0-5.6); WHITE BLOOD CELLS 13.3 10/3/uL (4.5-10.5)
[2016-04-02 07:48] LABS: HEMATOCRIT 36.1 % (36.0-48.0); MANUAL DIFF YES %
[2016-04-02 08:29] LABS: BAND NEUTROPHILS 6 %; IMMATURE GRANS ABSOLUTE (CALC) 0.53 10/3/uL (0.0-0.11); LYMPHOCYTES 7 %; LYMPHOCYTES ABSOLUTE (CALC) 0.93 10/3/uL (0.67-4.30); METAMYELOCYTES 4 %; NEUTROPHILS ABSOLUTE (CALC) 11.84 10/3/uL (2.02-8.40); PLATELET ESTIMATE ADQ (ADEQUATE); SEGMENTED NEUTROPHIL (0) 83 %; TOTAL NUCLEATED CELLS 100; TOXIC GRANULATION 1+
[2016-04-02 08:30] LABS: RBC MORPHOLOGY NORM (NORMAL)
[2016-04-02 11:36] LABS: BUN (BLOOD UREA NITROGEN) 56 MG/DL (6-23); CALCIUM, SERUM 9.5 MG/DL (8.5-10.4); CHLORIDE, SERUM 105 MMOL/L (96-112); CO2 (CARBON DIOXIDE) 26 MMOL/L (24-34); CREATININE 0.97 MG/DL (0.55-1.02); GFR AFRICAN AMERICAN 71 ML/MIN (>=60); GFR NON AFRICAN AMERICAN 61 ML/MIN (>=60); GLUCOSE, SERUM 195 MG/DL (60-99); SODIUM, SERUM 142 MMOL/L (135-148)
[2016-04-02 11:37] LABS: DIGOXIN 0.9 NG/ML (0.8-2.0); POTASSIUM, SERUM 5.4 MMOL/L (3.5-5.3)
[2016-04-02 12:33] LABS: PROCALCITONIN 0.05 ng/mL (<0.5)
[2016-04-03 08:54] LABS: HEMATOCRIT 37.3 % (36.0-48.0); HEMOGLOBIN 12.3 g/dL (12.0-16.0); MEAN CORPUSCULAR HEMOGLOB 28.5 pg (26.0-34.0); MEAN CORPUSCULAR VOLUME 86.5 fL (80-100); MEAN PLATELET VOLUME 10.2 fL (9.2-13.0); PLATELET COUNT 427 10/3/uL (150-400); RBC DISTRIBUTION WIDTH 14.8 % (12.0-16.0); RED CELL COUNT 4.31 10/6/uL (4.0-5.6)
[2016-04-03 08:55] LABS: MANUAL DIFF YES %; WHITE BLOOD CELLS 23.9 10/3/uL (4.5-10.5)
[2016-04-03 09:00] LABS: PARTIAL THROMBO TIME 76.8 SEC (22.5-37.2)
[2016-04-03 09:23] LABS: BAND NEUTROPHILS 2 %; LYMPHOCYTES 12 %; LYMPHOCYTES ABSOLUTE (CALC) 2.87 10/3/uL (0.67-4.30); METAMYELOCYTES 5 %; MONOCYTES 1 %; MONOCYTES ABSOLUTE (CALC) 0.24 10/3/uL (0.21-1.20); SEGMENTED NEUTROPHIL (0) 80 %; TOTAL NUCLEATED CELLS 100
[2016-04-03 09:24] LABS: PLATELET ESTIMATE SLT INC (ADEQUATE); RBC MORPHOLOGY NORM (NORMAL)
[2016-04-03 09:33] LABS: CHLORIDE, SERUM 98 MMOL/L (96-112); CO2 (CARBON DIOXIDE) 25 MMOL/L (24-34); CREATININE 0.85 MG/DL (0.55-1.02); GFR AFRICAN AMERICAN 83 ML/MIN (>=60); GFR NON AFRICAN AMERICAN 72 ML/MIN (>=60); SODIUM, SERUM 136 MMOL/L (135-148)
[2016-04-03 09:34] LABS: BUN (BLOOD UREA NITROGEN) 51 MG/DL (6-23); DIGOXIN 0.9 NG/ML (0.8-2.0); GLUCOSE, SERUM 145 MG/DL (60-99); POTASSIUM, SERUM 3.6 MMOL/L (3.5-5.3)
[2016-04-03 17:11] LABS: HEMATOCRIT 34.7 % (36.0-48.0); HEMOGLOBIN 11.4 g/dL (12.0-16.0); MANUAL DIFF YES %; MEAN CORPUS HGB CONC 32.9 g/dL (32.0-36.0); MEAN CORPUSCULAR HEMOGLOB 28.4 pg (26.0-34.0); MEAN CORPUSCULAR VOLUME 86.3 fL (80-100); MEAN PLATELET VOLUME 9.9 fL (9.2-13.0); PLATELET COUNT 384 10/3/uL (150-400); RBC DISTRIBUTION WIDTH 14.8 % (12.0-16.0); RED CELL COUNT 4.02 10/6/uL (4.0-5.6); WHITE BLOOD CELLS 24.2 10/3/uL (4.5-10.5)
[2016-04-03 17:30] LABS: BAND NEUTROPHILS 1 %; IMMATURE GRANS ABSOLUTE (CALC) 0.24 10/3/uL (0.0-0.11); LYMPHOCYTES 5 %; LYMPHOCYTES ABSOLUTE (CALC) 1.21 10/3/uL (0.67-4.30); METAMYELOCYTES 1 %; MONOCYTES 5 %; MONOCYTES ABSOLUTE (CALC) 1.21 10/3/uL (0.21-1.20); NEUTROPHILS ABSOLUTE (CALC) 21.54 10/3/uL (2.02-8.40); SEGMENTED NEUTROPHIL (0) 88 %; TOTAL NUCLEATED CELLS 100
[2016-04-03 17:31] LABS: PLATELET ESTIMATE ADQ (ADEQUATE); RBC MORPHOLOGY NORM (NORMAL)
[2016-04-04 07:57] LABS: HEMATOCRIT 34.2 % (36.0-48.0); HEMOGLOBIN 11.2 g/dL (12.0-16.0); MEAN CORPUS HGB CONC 32.7 g/dL (32.0-36.0); MEAN CORPUSCULAR HEMOGLOB 27.9 pg (26.0-34.0); MEAN CORPUSCULAR VOLUME 85.1 fL (80-100); MEAN PLATELET VOLUME 10.1 fL (9.2-13.0); PLATELET COUNT 345 10/3/uL (150-400); RED CELL COUNT 4.02 10/6/uL (4.0-5.6); WHITE BLOOD CELLS 18.2 10/3/uL (4.5-10.5)
[2016-04-04 07:59] LABS: MANUAL DIFF YES %
[2016-04-04 08:27] LABS: BAND NEUTROPHILS 2 %; EOSINOPHILS 2 %; EOSINOPHILS ABSOLUTE (CALC) 0.36 10/3/uL (0.0-0.53); IMMATURE GRANS ABSOLUTE (CALC) 0.18 10/3/uL (0.0-0.11); LYMPHOCYTES 14 %; LYMPHOCYTES ABSOLUTE (CALC) 2.55 10/3/uL (0.67-4.30); METAMYELOCYTES 1 %; MONOCYTES 7 %; MONOCYTES ABSOLUTE (CALC) 1.27 10/3/uL (0.21-1.20); NEUTROPHILS ABSOLUTE (CALC) 13.83 10/3/uL (2.02-8.40); PLATELET ESTIMATE ADQ (ADEQUATE); RBC MORPHOLOGY NORM (NORMAL); SEGMENTED NEUTROPHIL (0) 74 %; TOTAL NUCLEATED CELLS 100; TOXIC GRANULATION 1+
[2016-04-04 14:06] LABS: CALCIUM, SERUM 8.4 MG/DL (8.5-10.4); CHLORIDE, SERUM 98 MMOL/L (96-112); CO2 (CARBON DIOXIDE) 26 MMOL/L (24-34); CREATININE 1.14 MG/DL (0.55-1.02); GFR AFRICAN AMERICAN 58 ML/MIN (>=60); GFR NON AFRICAN AMERICAN 50 ML/MIN (>=60); POTASSIUM, SERUM 4.1 MMOL/L (3.5-5.3); SODIUM, SERUM 135 MMOL/L (135-148)
[2016-04-04 14:09] LABS: BUN (BLOOD UREA NITROGEN) 58 MG/DL (6-23); GLUCOSE, SERUM 210 MG/DL (60-99)
[2016-04-05 05:58] LABS: HEMATOCRIT 34.9 % (36.0-48.0); HEMOGLOBIN 11.3 g/dL (12.0-16.0); MEAN CORPUS HGB CONC 32.4 g/dL (32.0-36.0); MEAN CORPUSCULAR HEMOGLOB 28.4 pg (26.0-34.0); PLATELET COUNT 315 10/3/uL (150-400); RBC DISTRIBUTION WIDTH 14.8 % (12.0-16.0); RED CELL COUNT 3.98 10/6/uL (4.0-5.6)
[2016-04-05 06:01] LABS: MANUAL DIFF YES %; MEAN CORPUSCULAR VOLUME 87.7 fL (80-100)
[2016-04-05 06:26] LABS: BAND NEUTROPHILS 8 %; EOSINOPHILS 1 %; LYMPHOCYTES 9 %; METAMYELOCYTES 1 %; MONOCYTES 3 %; PLATELET ESTIMATE ADQ (ADEQUATE); POLYCHROMASIA 1+ (2-5/OIF) (0-1/OIF); SEGMENTED NEUTROPHIL (0) 78 %; TOTAL NUCLEATED CELLS 100; TOXIC GRANULATION 1+
[2016-04-07 04:53] LABS: HEMATOCRIT 34.5 % (36.0-48.0); HEMOGLOBIN 11.4 g/dL (12.0-16.0); MANUAL DIFF YES %; MEAN CORPUSCULAR HEMOGLOB 28.9 pg (26.0-34.0); MEAN CORPUSCULAR VOLUME 87.3 fL (80-100); MEAN PLATELET VOLUME 10.2 fL (9.2-13.0); PLATELET COUNT 342 10/3/uL (150-400); RBC DISTRIBUTION WIDTH 15.2 % (12.0-16.0); RED CELL COUNT 3.95 10/6/uL (4.0-5.6); WHITE BLOOD CELLS 18.7 10/3/uL (4.5-10.5)
[2016-04-07 05:02] LABS: CHLORIDE, SERUM 100 MMOL/L (96-112); CO2 (CARBON DIOXIDE) 27 MMOL/L (24-34); CREATININE 0.94 MG/DL (0.55-1.02); GFR AFRICAN AMERICAN 74 ML/MIN (>=60); GFR NON AFRICAN AMERICAN 64 ML/MIN (>=60); POTASSIUM, SERUM 4.9 MMOL/L (3.5-5.3); SODIUM, SERUM 135 MMOL/L (135-148)
[2016-04-07 05:03] LABS: BUN (BLOOD UREA NITROGEN) 49 MG/DL (6-23); GLUCOSE, SERUM 88 MG/DL (60-99)
[2016-04-07 06:56] LABS: BAND NEUTROPHILS 6 %; IMMATURE GRANS ABSOLUTE (CALC) 0.19 10/3/uL (0.0-0.11); LYMPHOCYTES 12 %; LYMPHOCYTES ABSOLUTE (CALC) 2.24 10/3/uL (0.67-4.30); METAMYELOCYTES 1 %; MONOCYTES 2 %; MONOCYTES ABSOLUTE (CALC) 0.37 10/3/uL (0.21-1.20); PLATELET ESTIMATE ADQ (ADEQUATE); RBC MORPHOLOGY NORM (NORMAL); SEGMENTED NEUTROPHIL (0) 79 %; TOTAL NUCLEATED CELLS 100
[2016-09-01] MEDS ORDERED: COREG6 PO (19:30)
[2016-09-01] MEDS ORDERED: IMDUR60 PO (19:31)
[2016-09-01] MEDS ORDERED: ABILIFY5 PO (19:31)
[2016-09-01] MEDS ORDERED: BUSPAR5 PO (19:31)
[2016-09-01] MEDS ORDERED: HYGROTON 25 MG25 MG PO (19:32)
[2016-09-01] MEDS ORDERED: PLAVIX PO (19:33)
[2016-09-01] MEDS ORDERED: LAN25 PO (19:33)
[2016-09-01] MEDS ORDERED: CYMBALTA60 PO (19:33)
[2016-09-01] MEDS ORDERED: NEUR600 PO (19:34)
[2016-09-01] MEDS ORDERED: LEVEMIR SC (19:34)
[2016-09-01] MEDS ORDERED: RYTHMOL150 MG PO (19:37)
[2016-09-01] MEDS ORDERED: CRESTOR5 MG PO (19:37)
[2016-09-01] MEDS ORDERED: NOVOLOG SC (19:37)
[2016-09-01] MEDS ORDERED: SYN.05 PO (19:37)
[2016-09-01] MEDS ORDERED: TRAZ50 PO (19:38)
[2016-09-01] MEDS ORDERED: NORCO1 TA1 PO (19:38)
[2016-09-01] MEDS ORDERED: *UNABLE1 (19:39)
[2016-09-02] MEDS ORDERED: SINGULAIR1 PO (12:18)
[2016-09-02] MEDS ORDERED: ASAB PO (12:21)
[2016-09-02] MEDS ORDERED: B121000P IM (12:21)
[2016-09-02] MEDS ORDERED: NEUR600 PO (12:22)
[2016-09-02] MEDS ORDERED: BIST PO (12:24)
[2016-09-02] MEDS ORDERED: MIRALAX POWDER1 PKT PO (12:24)
[2016-09-02] MEDS ORDERED: ZANTAC300 MG PO (12:25)
[2016-09-02] MEDS ORDERED: ANOROELLIPTA INH (12:28)
[2016-09-02] MEDS ORDERED: VENTOLIN HFA INH (12:28)
[2016-09-02] MEDS ORDERED: ACET500CAP PO (12:31)
[2016-09-02] MEDS ORDERED: ADVIL PO (12:31)
[2016-09-02] MEDS ORDERED: GAMMAGARD (12:32)
[2016-09-02] MEDS ORDERED: ALBUTEROL0.083 % INH (12:32)
== END 2016-04-09 12:31 | DRG 208 ==
LOC: ER 20:47 → CVICU 22:59 → 7NO 04-01 13:18
PROVIDERS: Emergency Medicine; Internal Medicine; Internal Medicine Cardiovascular Disease; Internal Medicine Critical Care Medicine; Internal Medicine Pulmonary Disease
PROC: 0BH17EZ Insertion of Endotracheal Airway into Trachea, Via Natural or Artificial Opening (ICD-10-PCS; principal; 2016-03-27)
PROC: 5A1945Z Respiratory Ventilation, 24-96 Consecutive Hours (ICD-10-PCS; principal; 2016-03-27)
PROC: 5A09357 Assistance with Respiratory Ventilation, Less than 24 Consecutive Hours, Continuous Positive Airway Pressure (ICD-10-PCS; 2016-03-27)
PROC: 02HV33Z Insertion of Infusion Device into Superior Vena Cava, Percutaneous Approach (ICD-10-PCS; 2016-03-28)
PROC: 4A02X4A Measurement of Cardiac Electrical Activity, Guidance, External Approach (ICD-10-PCS; 2016-03-28)
DX: J96.22 Acute and chronic respiratory failure with hypercapnia (principal); N17.9 Acute kidney failure, unspecified; E46 Unspecified protein-calorie malnutrition; D83.9 Common variable immunodeficiency, unspecified; I50.32 Chronic diastolic (congestive) heart failure; I11.0 Hypertensive heart disease with heart failure; I48.0 Paroxysmal atrial fibrillation; J44.1 Chronic obstructive pulmonary disease with (acute) exacerbation; E11.9 Type 2 diabetes mellitus without complications; E78.5 Hyperlipidemia, unspecified; J96.21 Acute and chronic respiratory failure with hypoxia; F17.210 Nicotine dependence, cigarettes, uncomplicated; I25.10 Atherosclerotic heart disease of native coronary artery without angina pectoris; M06.9 Rheumatoid arthritis, unspecified; F31.9 Bipolar disorder, unspecified; J45.909 Unspecified asthma, uncomplicated; G47.33 Obstructive sleep apnea (adult) (pediatric); Z79.02 Long term (current) use of antithrombotics/antiplatelets; Z79.899 Other long term (current) drug therapy; Z88.2 Allergy status to sulfonamides; Z88.5 Allergy status to narcotic agent; Z79.82 Long term (current) use of aspirin; Z90.710 Acquired absence of both cervix and uterus; Z82.49 Family history of ischemic heart disease and other diseases of the circulatory system; Z95.5 Presence of coronary angioplasty implant and graft; Z91.19 Patient's noncompliance with other medical treatment and regimen; Z79.84 Long term (current) use of oral hypoglycemic drugs; Z79.4 Long term (current) use of insulin; Z87.440 Personal history of urinary (tract) infections
CPT/HCPCS: 31500; 31720; 36569; 36600; 70450; 71010; 73030-LT; 74000; 80048; 80053; 80069; 80162; 80202; 81001; 82805; 82962; 83605; 83735; 83880; 84100; 84132; 84145; 84439; 84443; 84484; 85025; 85610; 85730; 87040; 87070; 87205; 87449; 87641; 87804; 92610-GN; 93005; 93306; 94002; 94003; 94640; 94660; 94770; 96365; 96366; 96375; 97162-GP; 97530-GP; 99291; A9270-GY; C1751; C1894; C9113; G8978-CL-GP; G8979-CK-GP; G8996-CJ-GN; G8997-CJ-GN; G8998-CJ-GN; J0330; J0692; J1120; J1160; J2920; J2930; J3010; J3370; P9045; P9047

== ENCOUNTER 2016-04-29 14:00 | Inpatient (IN) | payer MEDICARE, BC, OTHER ==
--- NOTE | ~2016-04-29 | CN ---
Consultation Report [facility] [address] [place]. [address] NAME: ELIZA GILMAN : 50 STATUS : ADM IN PAT#: [id number] AGE: 65 ADM/REG DATE : 04/29/16 MR#: [id number] REPORT SERV DATE: 04/30/16 DICTATED BY: LOREN VEE DATE: 04/30/16 REPORT STATUS : Draft TRANSCRIBED BY: MODL DATE: 04/30/16 PULMONARY CONSULTATION DATE OF CONSULTATION: 04/30/2016 REASON FOR CONSULTATION: COPD exacerbation, hypercapnia, and BiPAP. HISTORY OF PRESENT ILLNESS: Ms. Gilman is a 65-year-old white female, smoker with COPD, chronic hypoxia, combined variable immunodeficiency, and obstructive sleep apnea, who is admitted to [facility] with a decline in mental status with associated obtundation as well as hypercapnia and hypoxemia that was thought to be secondary to COPD exacerbation. She was treated with BiPAP, supplemental oxygen, inhaled steroids, systemic steroids and antibiotics and is much better this morning. Pulmonary was consulted for assistance with her management. She remains intermittently confused, but is able to give a history. She states that she was admitted to the hospital here recently, and per available medical record, she was discharged approximately three weeks ago. Since her discharge from the hospital after treatment for pulmonary infection as well as hypercapnic and hypoxemic respiratory failure that required mechanical ventilation, she has had ongoing dyspnea and cough productive of brown sputum, but she denies fever, chills, and wheezing. She also complains of ongoing abdominal pain as well as dysuria, urinary frequency and urgency. She reports compliance with her discharge medications including Dulera, rescue albuterol, and Singulair. Currently, she reports feeling better and states her breathing has improved since admission. PAST MEDICAL HISTORY: 1. COPD-per available information, the patient has moderate obstructive ventilatory defect by pulmonary function testing done 08/30/2015 by her outpatient enterprise records analyst, Dr. James Domínguez. 2. Chronic hypoxia-on supplemental oxygen, but the patient reports intermittent compliance. She states she uses it only when needed. 3. Obstructive sleep apnea-noncompliant with CPAP. 4. Smoking/tobacco addiction-per available information, she has a never had a lung cancer screening CT scan of the chest, though one has been ordered for her on more than one occasion. 5. Combined variable immunodeficiency-she has history of noncompliance with her IVIG therapy and it is unknown when she last received treatment. 6. Coronary artery disease-stent x2. 7. Congestive heart failure with preserved ejection fraction. 8. Diabetes mellitus. 9. Dyslipidemia. Consultation Report [facility] [address] [place]. [address] NAME: ELIZA GILMAN : 50 STATUS : ADM IN PAT#: [id number] AGE: 65 ADM/REG DATE : 04/29/16 MR#: [id number] REPORT SERV DATE: 04/30/16 DICTATED BY: LOREN VEE DATE: 04/30/16 REPORT STATUS : Draft TRANSCRIBED BY: COLBY DATE: 04/30/16 10.Hypertension. 11.Hypothyroidism. 12.Rheumatoid arthritis. 13.Recurrent urinary tract infection. 14.Anxiety/depression. 15.Carpal tunnel release surgery. 16.Left hip surgery. 17.Total abdominal hysterectomy. 18.Previous left knee surgery. FAMILY HISTORY: Patient currently denies a family history of pulmonary diseases, but per available information, she has several members of her family who are smokers and have emphysema. SOCIAL HISTORY: Ms. Gilman currently smokes one to one and a half packs of cigarettes per day and has been a smoker for 46 years. She denies ethanol intake, past/present drug use, or occupational exposures. She previously worked in a flower shop. She is and has three children. MEDICATIONS: Outpatient and inpatient medications were reviewed and are as documented in the record. Per the patient, her current outpatient pulmonary medications were Dulera 200/20 mcg two puffs twice daily, Singulair 10 mg once daily, and rescue albuterol. Per her office note from 08/30/2015, she was on Anoro Ellipta once daily, rescue albuterol, and Singulair 10 mg once daily. ALLERGIES: SULFA-RASH, CODEINE-TACHYCARDIA. REVIEW OF SYSTEMS: A limited review of systems was conducted and is remarkable for the symptoms as described in the history of present illness. PHYSICAL EXAMINATION: VITAL SIGNS: Temperature 101.1, heart rate 107, blood pressure 159/74, respiratory rate 36- 40, oxygen saturation 93% on supplemental oxygen at a flow rate of 6 L/minute. GENERAL: Elderly white female. Awake, but intermittently sleepy. Appropriate, no apparent distress. HEENT: Normocephalic, atraumatic. There is no scleral icterus. The conjunctivae are clear. The oropharynx is clear and dry. NECK: Supple. No lymphadenopathy was appreciated. LUNGS: Diminished breath sounds throughout-worse at the bases. There are no crackles, wheezes, or rhonchi. She is tachypneic, but has good respiratory effort. HEART: Distant. Regular tachycardia. No ectopy was noted. ABDOMEN: Soft. Distended with diffuse mild tenderness that is significantly worse in the suprapubic area. There are normal bowel sounds in all four quadrants. No masses were noted. Consultation Report [facility] [address] [place]. [address] NAME: ELIZA GILMAN : 50 STATUS : ADM IN [facility]#: [id number] AGE: 65 ADM/REG DATE : 04/29/16 MR#: [id number] REPORT SERV DATE: 04/30/16 DICTATED BY: LOREN VEE DATE: 04/30/16 REPORT STATUS : Draft TRANSCRIBED BY: COLBY DATE: 04/30/16 EXTREMITIES: Bilateral extremities, there is trace pretibial edema, but no cyanosis or clubbing. NEUROLOGICAL: Limited exam was found to be nonfocal. She is moving all extremities without problems. She is able to follow simple commands. SKIN: No rashes were noted. LABORATORY RESULTS: Labs were reviewed and are as documented in the record. Notable labs include a procalcitonin of 0.05. The white blood cell count is 12.7, which has increased slightly from admission. The BUN is 20 with a creatinine of 1.31 and these have decreased slightly since admission. Arterial blood gas done on supplemental oxygen at 36% revealed a pH of 7.30, pCO2 of 53, and a PO2 of 52. A subsequent blood gas done on 40% of oxygen revealed a pH of 7.32, pCO2 59, and pO2 of 74. Urinalysis revealed cloudy urine with large leukocyte esterase, positive nitrate, white blood cell count greater than 182 with many clumps, and many bacteria. Blood cultures are pending. IMAGING: There is no dedicated chest imaging done this admission. The lung cuts of a CT of the abdomen and pelvis revealed dense bibasilar consolidation and an 11 x 7 mm nodule in the right middle lobe. There is mild cardiomegaly. It is notable that the abdomen revealed marked stool retention. The chest x-ray done 04/03/2016 (last admission) was reviewed and did not reveal any infiltrates, atelectasis, or effusions. ASSESSMENT AND PLAN: Ms. Gilman is a 65-year-old white female, smoker with acute hypercapnic and hypoxemic respiratory failure, it is likely secondary to underlying chronic obstructive pulmonary disease and complicated by urosepsis. She has a significant urinary tract infection as noted by her symptoms and her urinalysis. She has responded very well to BiPAP, antibiotics (Maxipime and vancomycin), but had persistent elevation of her pCO2 on her most recent blood gas. She does have a history of obstructive sleep apnea as noted. As noted, she has a dense bilateral lower lobe consolidation and a lung nodule in the right middle lobe. She has never had a dedicated lung cancer screening CT scan of the chest. Review of available information indicates that she has not had a CT scan of the chest in more than one year. RECOMMEND: Consultation Report [place] [address] [place]. [address] NAME: ELIZA GILMAN : 50 STATUS : ADM IN PAT#: [id number] AGE: 65 ADM/REG DATE : 04/29/16 MR#: [id number] REPORT SERV DATE: 04/30/16 DICTATED BY: LOREN VEE DATE: 04/30/16 REPORT STATUS : Draft TRANSCRIBED BY: COLBY DATE: 04/30/16 1. Check urine cultures. 2. Check sputum cultures. 3. Await blood cultures. 4. Continue current antibiotic regimen. 5. Agree with weaning her systemic steroids-her Solu-Medrol has been decreased to 20 mg IV q.12. 6. Recommend continuing inhaled steroids and bronchodilators. 7. Would improve pulmonary toilet-EzPAP will be added to her regimen. 8. Recommend using BiPAP overnight plus as needed, but would change the settings to 20/5 and increase the rate. 9. Titrate her oxygen as needed. 10.She does have abdominal distention and significant stool retention, so recommend treating this expeditiously. 11.Review of nicotine replacement. 12.We will request a CT scan of her chest without contrast. 13.She does have combined variable immunodeficiency as noted. She has been noncompliant with her IG infusions, this should be set up for her again upon discharge, though compliance is uncertain. 14.She was counseled for more than five minutes regarding the importance of smoking cessation. Thank you very much for this consultation. Further recommendations to follow depending on her response to treatment and results of her CT scan of the chest. PS/MODL Loren Vee M.D. / [id number] CC: Ishmael Patricio MD
--- NOTE | ~2016-04-29 | CN ---
Consultation Report [facility] [address] [place]. [address] NAME: ELIZA MENJIVAR : 50 STATUS : ADM IN PAT#: [id number] AGE: 65 ADM/REG DATE : 04/29/16 MR#: [id number] REPORT SERV DATE: 05/12/16 DICTATED BY: AMBER CHAMBERS DATE: 05/09/16 REPORT STATUS : Draft TRANSCRIBED BY: MODL DATE: 05/09/16 CONSULTATION DATE OF CONSULTATION: 05/09/2016 REASON FOR CONSULTATION: Acute kidney injury. HISTORY OF PRESENT ILLNESS: This is a pleasant 65-year-old female patient, who was admitted to the Hospitalist Service. She resides in [place], [place], and apparently was recently in an outlying facility for a prolonged amount of time for respiratory management, which appears to be related to respiratory failure with continued abuse of tobacco products and known history of COPD. She presented on 04/29/2016 to [facility] with a complaint of feeling "poorly." She was evaluated and placed inpatient with a diagnosis of unilateral right-sided pneumonia. She has been maintained on treatment chronically currently on vancomycin and Zosyn and has a reasonable vancomycin trough, which was slightly elevated this afternoon at 21.5. Baseline creatinine appears to be around 1.0 in review of her available laboratories. She was admitted at 1.54 creatinine, which trended down to 1.26 on the 05/06/2016 and steadily nicky to 1.63 on the 05/07/2016. On the 05/08/2016, it was 2.08, and today it was 2.54 with a potassium this morning of 6.3. Potassium was treated this morning with D50 and insulin, however, has not been rechecked as of my current evaluation. The patient is known to be incontinent and is unclear if her urinary output is not available or quantified in current active nursing evaluation and charting and that is available to me. The patient is somewhat somnolent, but is arousable. There is no family at bedside and she is a rather poor historian. Previous ABGs have shown this morning that pH is stable at 7.34, pO2 at 79, and pCO2 of 41. The patient is lying in bed this afternoon and somewhat somnolent as above. Denies current chest pain. No nausea, vomiting, or diarrhea. She appears to be in no acute distress. PAST MEDICAL HISTORY: Positive for recent hospitalization as listed above at outlying facility. History is also positive for COPD with chronic tobacco abuse. History is also positive for chronic oxygen use at home, diastolic congestive heart failure with preserved ejection fraction at 55% with no pulmonary pressures available at point of dictation. She also has a positive history of coronary artery disease, previous stent placement Dr. Elsa Parson, history of hypothyroidism, morbid obesity, hyperlipidemia, bipolar disorder, obstructive sleep apnea with noncompliance with CPAP, history of rheumatoid arthritis, diabetes mellitus type 2, spiral displaced humeral fracture on the left side in [address] Larry Gilliland. PAST SURGICAL HISTORY: Positive for hysterectomy and left hip replacement, knee joint surgery, and bilateral carpal tunnel release. SOCIAL HISTORY: She is a resident of assisted. Lives in [place], [place]. No EtOH. No illicit drugs. Continues to use tobacco by report. REVIEW OF SYSTEMS: Consultation Report [address] [place]. [address] NAME: ELIZA MENJIVAR : 50 STATUS : ADM IN [facility]#: [id number] AGE: 65 ADM/REG DATE : 04/29/16 MR#: [id number] REPORT SERV DATE: 05/12/16 DICTATED BY: AMBER CHAMBERS DATE: 05/09/16 REPORT STATUS : Draft TRANSCRIBED BY: COLBY DATE: 05/09/16 Completed with the assistance minimally of the patient. Most of the medical data is gathered through review of previous charts as well as the nursing staff, who is available at bedside. ALLERGIES: SHE LISTS ALLERGIES TO CODEINE AND SULFA ANTIBIOTICS. MEDICATIONS: Active medications on entry include albuterol inhaled q.4 hours p.r.n., Norvasc 5 mg p.o. daily, Eliquis 5 mg p.o. b.i.d., Abilify 5 mg p.o. at bedtime, ASA 81 mg daily, Dulcolax 10 mg per rectum p.r.n., 3.125 mg p.o. b.i.d. of Coreg, Catapres 0.2 topical q.7 days, vitamin B12 1000 mcg IM q.3 days, Lanoxin 0.25 mg p.o. daily, Cymbalta 60 mg p.o. daily, Neurontin 600 mg p.o. b.i.d., hydrocodone 5/325 one tab p.o. q.4 hours p.r.n., Levemir 28 units subcu at bedtime, NovoLog via sliding scale, isosorbide mononitrate 60 mg p.o. daily, levothyroxine 50 mcg daily, Cozaar 50 mg daily, Glucophage 1000 mg daily, milk of magnesia p.r.n., Dulera two puffs inhaled p.o. b.i.d., Singulair 10 mg daily, MiraLAX 1 packet p.o. b.i.d., Rythmol 300 mg p.o. q.8 hours, Zantac 300 mg p.o. b.i.d., Crestor 5 mg p.o. at bedtime, Spiriva one dose inhaled daily, Maxzide one tablet p.o. daily, and Fleet Enema p.r.n. PHYSICAL EXAMINATION: VITAL SIGNS: Blood pressure 132/62, temperature at 97.7, she is 95% on 2 L, respiratory rate at 18, heart rate at 55 beats per minute and regular. GENERAL: She is a chronically ill-appearing, obese female patient, who is somnolent, but arousable during evaluation. HEENT: Normocephalic, atraumatic. Normal ocular movements. No scleral icterus. No conjunctival pallor is appreciated. NECK: Supple without thyromegaly. No JVD or mass. CHEST: Shows positive S1 and S2. No rubs or gallops. LUNGS: Diminished throughout without overt rhonchi or wheezes. GI: Shows an obese, rounded abdomen. No appreciable mass. No tenderness. It is not firm. : Deferred. She is said to be incontinent and is currently in brief. EXTREMITIES: Show positive pulses to all four extremities. No clubbing, cyanosis, or edema. SKIN: She has no evidence of wound breakdown on her heels. The remainder of her back and buttocks area are not inspected on evaluation. NEUROLOGIC: She is difficult to test, but appears to be grossly intact. She is somewhat somnolent, but arousable and appropriate and nonfocal, and she appears to be of appropriate mood and affect. LABORATORY DATA: Pertinent laboratories and imaging to this evaluation: Portable chest x- ray identifies right lung infiltrates, attenuated slow to shallow inspiration with no significant change. Most recent electrolyte profile: Sodium 131, potassium 6.3, chloride 98, CO2 of 23, BUN 55, creatinine 2.54, reflected GFR at 90 mL/minute, glucose of 115, calcium 8.9, vancomycin level 21.9. CBC shows a white blood cell count of 16.1, RBC 3.27, hemoglobin 8.5, hematocrit 26.8, and platelets at 399. Most recent ABG as mentioned in HPI, pH is 7.34, pCO2 is 41, PO2 is 79, with oxygen saturation at 95.1. Consultation Report [facility] [address] [place]. [address] NAME: ELIZA MENJIVAR : 50 STATUS : ADM IN [facility]#: [id number] AGE: 65 ADM/REG DATE : 04/29/16 MR#: [id number] REPORT SERV DATE: 05/12/16 DICTATED BY: AMBER CHAMBERS DATE: 05/09/16 REPORT STATUS : Draft TRANSCRIBED BY: COLBY DATE: 05/09/16 IMPRESSION AND PLAN: This is a chronically ill, obese female patient, who resides in a nursing facility, now presented to [facility], recent hospitalization as listed above in outlying facility. She is now hospitalized for what appears to be pneumonia on examination. Her leukocytosis has improved mildly as she is currently receiving broad-spectrum coverage with vancomycin and Zosyn. Her urinary output is in question as she is incontinent of bladder and she has been using briefs. The nursing staff reports a scant amount of urine produced this morning and it is unclear if she is not actively making urine or if she does have a retention problem. It is difficult to ascertain an adequate history from. It does not appear that she has had any contrasted studies while she has been here. She does not show evidence of overt or prolonged hypotension. Her ARB, her Maxzide, and her metformin have been recently removed, which I agree with. Lactated Ringer's were to be put in place this morning, however, we will modify those orders to normal saline at 100 mL per hour and provide her one amp of sodium bicarb IV push as her CO2 is somewhat depressed. Check a renal ultrasound, check a Doppler considering her tobacco abuse history, check urine studies, recheck her potassium, which was treated earlier this morning with D50 and insulin to evaluate need for further treatment. Certainly, if the patient is not producing urine, further measures we will need to be taken aggressively to treat this patient. For now, we will continue the fluids as listed above, modify the medication pattern as it has already been done, evaluate her with the renal ultrasound, recheck potassium, and monitor her closely with serial laboratories and urinary output. Should she continue to show an escalation in her creatinine or hyperkalemia, she would be a marginal to poor candidate for long-term hemodialysis considering her multiple comorbidities and other medical issues. Further modification of treatment plan may be made based on the clinical presentation of the patient's laboratory results and further consultation with renal attending. We appreciate consultation. We are glad to follow this patient with you. DICTATED BY: Good Raphael NP JR/COLBY ber Chambers M.D. / [id number] CC: Isi Mendoza TOM D
--- NOTE | ~2016-04-29 | DS ---
Discharge Summary [facility] [address] [place]. [address] NAME: ELIZA MENJIVAR : 50 STATUS : ADM IN [facility]#: [id number] AGE: 65 ADM/REG DATE : 04/29/16 MR#: [id number] REPORT SERV DATE: 05/13/16 DICTATED BY: OMAR SHARPE DATE: 05/12/16 REPORT STATUS : Draft TRANSCRIBED BY: MODL DATE: 05/12/16 ADMISSION DATE: 04/29/2016 DISCHARGE DATE: Date of discharge or tentative transfer to SNF/Rehab at [facility] is 05/12/2016 if a bed is available. DIAGNOSIS ON DISCHARGE: Multilobar pneumonia, community-acquired/aspiration - resolved at this time and the patient is off all antibiotics as of now. The patient has received quite a few antibiotics all the way from admission until now, and hence all her antibiotics have been stopped as she is afebrile, her WBC count is normal, she is nontoxic, and definitely at risk for C. diff if any more antibiotics are continued in this lady. OTHER DIAGNOSES: Include: 1. Acute on chronic hypoxic hypercapnic respiratory failure - this has resolved. 2. Chronic hypercapnic respiratory failure secondary to obesity hypoventilation syndrome/obstructive sleep apnea and also benzodiazepine and narcotic dependence. For this, the patient has been placed on intermittent BiPAP and also BiPAP at nighttime, and she has done remarkably well on this and her hypercapnia is much better. Of course, the patient's benzodiazepines have been tapered off and stopped, and I recommend that these not be restarted and the patient is doing fairly well with BuSpar 5 mg p.o. b.i.d. for anxiety. 3. Regarding her narcotic dependence, again, these have been tapered off too; however, she may require some baseline medication for pain control as she does have chronic low back pain. I have discussed with the patient and we will keep her on Lamar 5/325 one p.o. twice a day only and p.r.n. only for severe pain. The patient is agreeable. 4. This admission also, the patient had a urinary tract infection with Citrobacter and also as mentioned above multilobar pneumonia for which she was started on IV cefepime and vancomycin. 5. Chronic variable immunodeficiency in this patient or CVID which is stable at this time. 6. Diabetes mellitus, stable. 7. Paroxysmal atrial fibrillation for which patient is already anticoagulated with Eliquis 5 mg twice a day and is also rate controlled currently on medications. 8. Chronic obstructive pulmonary disease. This is stable. 9. Chronic diastolic heart failure with an ejection fraction of 55%. 10.History of coronary artery disease. 11.As mentioned above, obstructive sleep apnea and obesity hypoventilation syndrome. Hence, definitely this patient should not be put on benzodiazepines or excessive narcotics again as this is detrimental to this patient, and I have had a long discussion with the patient regarding stopping smoking to which she agrees. BRIEF HOSPITAL COURSE: Please refer to interim discharge summary dictated by Dr. Patricio. The patient's care was taken over by me on 05/06/2016, and during this time, pulmonary continued to give me support. The patient's condition improved and her encephalopathy also improved at this time. However, it was noted that the patient has a new right upper lobe infiltrate on 05/07/2016. I presume that this is probably secondary to aspiration as the patient was Discharge Summary [address] [address] NAME: ELIZA MENJIVAR : 50 STATUS : ADM IN PAT#: [id number] AGE: 65 ADM/REG DATE : 04/29/16 MR#: [id number] REPORT SERV DATE: 05/13/16 DICTATED BY: OMAR SHARPE DATE: 05/12/16 REPORT STATUS : Draft TRANSCRIBED BY: MODKierra DATE: 05/12/16 definitely still confused on 05/06/2016. Hence, I switched her antibiotics from cefepime to IV Zosyn and discontinued her vancomycin. With this regimen, she did extremely well and her WBC count normalized to 11,000. Her encephalopathy also has significantly improved. Hence, she is being discharged to [facility] when a bed is available, and I will be discharging her to rehab on the following medications: 1. Abilify 5 mg p.o. at bedtime. 2. Brovana inhalation. 3. BuSpar 5 mg p.o. b.i.d. 4. Coreg 3.125 mg p.o. b.i.d. 5. Cymbalta 60 mg p.o. daily. 6. Eliquis 5 mg p.o. b.i.d. 7. Nicotine patch 21 mg patch if needed and if the patient asks for it only. 8. Aspirin 81 mg once a day. 9. Imdur 60 mg tablet once a day. 10.Levemir 28 units subcutaneously twice a day. 11.Lipitor 10 mg once a day. 12.MiraLAX powder 1 packet p.o. twice a day. 13.Neurontin 600 mg p.o. b.i.d. 14.NovoLog injection level 1 sliding scale. 15.Pepcid 20 mg once a day. 16.Proventil solution for nebulizer use p.r.n. 17.Pulmicort Respules twice a day 1 mg. 18.Rythmol tablet or propafenone 300 mg p.o. q.8 hours. 19.Singulair 10 mg p.o. daily. 20.Spiriva 18 mcg powder 1 capsule via HandiHaler once a day. 21.Levothyroxine or Synthroid 50 mcg tablets once a day. 22.Vitamin B12 tablets. The most recent labs that I have on this patient include the following: CBC on 05/11/2016 shows a WBC count of 11.1, hemoglobin 8.4, hematocrit of 27.4, and platelet count of 341. Renal function profile shows sodium of 139, potassium of 5, BUN of 37, creatinine of 1.26. Also to be noted, patient's creatinine jumped up to 2.4 about three days ago and we had to get a Renal consult. Promptly, Renal was consulted and they ordered IV Ringer's lactate, and with this, the patient's creatinine came down to baseline and her acute kidney injury resolved. Hence, this is not an issue at this time. Her blood glucose levels have been fairly well controlled and most values have been in the 150s range and has never exceeded 200 many times, and she is doing well with the current regimen of insulin. The most recent blood gases I have on this patient include the following: On 05/09/2016, her pH was 7.3, pCO2 41 which is good for her, PO2 of 79, O2 saturations 95.1 on inspired oxygen of about 40%. Since then, her requirement for oxygen also has come down. Her blood cultures have come back with no growth at two days so far. The patient also had a renal ultrasound ordered by Renal people who were consulted. This shows that the patient does have medical parenchymal disease which is known that she has chronic kidney disease, Discharge Summary [facility] [address] [place]. [address] NAME: ELIZA MENJIVAR : 50 STATUS : ADM IN PAT#: [id number] AGE: 65 ADM/REG DATE : 04/29/16 MR#: [id number] REPORT SERV DATE: 05/13/16 DICTATED BY: OMAR SHARPE DATE: 05/12/16 REPORT STATUS : Draft TRANSCRIBED BY: MODL DATE: 05/12/16 but other than that no high-grade renal artery stenosis was noted. Her BNP is constantly elevated at 147.6, but this is probably from the diastolic dysfunction of the heart that the patient has. For all other imaging studies - refer to Dr. Patricio' interim discharge summary so far. I have spent about 40 minutes in coordinating discharge care of this patient including face- to-face encounter and trying to summarize this discharge so she can go on to [facility]. DEVYN/COLBY Omar Sharpe M.D. / [id number] CC: Omar Sharpe M.D.
--- NOTE | ~2016-04-29 | IDS ---
Interim Discharge Summary [facility] [address] [place]. [address] NAME: ELIZA MENJIVAR : 50 STATUS : ADM IN PAT#: [id number] AGE: 65 ADM/REG DATE : 04/29/16 MR#: [id number] REPORT SERV DATE: 05/06/16 DICTATED BY: ISHMAEL NG DATE: 05/05/16 REPORT STATUS : Draft TRANSCRIBED BY: MODL DATE: 05/05/16 ADMISSION DATE: 04/29/2016 DISCHARGE DATE: PROCEDURES DONE: 1. 04/29/2016, CT abdomen and pelvis without contrast, moderate to large amount of stool in the colon as described compatible with fecal stasis/constipation. No bowel obstruction pattern demonstrated. Status post cholecystectomy. Dense consolidation in the posterior basal aspect of the lower lobes of both lungs suspicious for pneumonia. Nodular opacity in the posterior right middle lobe measuring up to 11 x 7 mm. Some opacity and nodular densities were seen in the right middle lobe on 01/28/2014, most of which has resolved suggestive of waxing and waning infectious/inflammatory process. However, suggest followup CT chest for further evaluation when clinically appropriate. Mild cardiomegaly with at least moderate atherosclerotic calcification of coronary arteries. 2. 05/01/2015, CT of the chest without contrast, predominantly subsolid nodule in the right middle lobe measuring up to 7 x 10 x 19 mm. This is only partially visualized on CT scan of the abdomen and pelvis from 04/29/2016 and new since 01/13/2014. Irregularly noncalcified nodule in the posteromedial aspect of the right middle lobe measuring 3 x 8 mm, new since 01/13/2014. New dense atelectasis in the dependent portion of the lower lobes of both lungs. Mild cardiomegaly with moderate to heavy coronary artery calcification and/or previous coronary artery stenting, most probably involving the LAD. Try to get report. Suggest followup CT scan in three months for further evaluation of above described nodules. 3. 05/01/2016, chest x-ray: No acute infiltrate. 4. 05/02/2016, chest x-ray: Bibasilar atelectasis changes and findings on CT scan cannot be appreciated in the single-view chest with distention below the diaphragm posteriorly. Pulmonary congestion is mildly worse compared to previous study of 05/01/2016. 5. 05/04/2016, chest x-ray, PA and lateral, mild bibasilar atelectasis. 6. 05/05/2016, chest x-ray. Patchy alveolar opacity developing over the right upper lobe concerning for pneumonia or asymmetric edema. CONSULT: Dr. Rachel for Pulmonary. REASON FOR ADMISSION: Bilateral pneumonia. HISTORY OF PRESENT ILLNESS: A 65-year-old white female with past medical history of COPD; history of common variable immune deficiency syndrome; diabetes; atrial fibrillation; history of congestive heart failure, EF of 55%; obesity; coronary artery disease; obstructive sleep apnea, presenting with bilateral pneumonia. The patient was recently discharged on 04/10/2016 for acute exacerbation of COPD. The patient was at [facility]. Unfortunately, the patient continues to smoke and was then admitted because of a change in mental status. The patient was found to be in hypercapnic hypoxemic respiratory failure. The patient was put on BiPAP. The patient initially was at [facility] until she demonstrated that her hypercapnic respiratory failure resolved. In addition, the patient Interim Discharge Summary [address] [address] NAME: ELIZA MENJIVAR : 50 STATUS : ADM IN [facility]#: [id number] AGE: 65 ADM/REG DATE : 04/29/16 MR#: [id number] REPORT SERV DATE: 05/06/16 DICTATED BY: ISHMAEL NG DATE: 05/05/16 REPORT STATUS : Draft TRANSCRIBED BY: COLBY DATE: 05/05/16 also was noted to have bilateral pneumonia. The patient was started on vancomycin and cefepime. In addition to the bilateral pneumonia, the patient also developed UTI secondary to Citrobacter, which was sensitive to cefepime. More importantly, the patient has been doing quite well during her hospital stay until the day of discharge when it was noted that the patient had a white cell count of 28,000. What is more concerning is the patient has been continued giving cefepime. Repeat imaging showed a patchy alveolar opacity in the right upper lobe concerning for pneumonia or asymmetric edema. At this time, we will hold the discharge to [facility] and continue cefepime for antibiotic. DIAGNOSES ON DISCHARGE: 1. Encephalopathy secondary to acute on chronic hypercapnic hypoxic respiratory failure, much improved. The patient continues to wear her BiPAP. 2. Acute on chronic hypercapnic respiratory failure secondary to bilateral pneumonia. The patient's treatment, questionable resolved with cefepime. We will repeat antibiotics at this time with cefepime. 3. Urinary tract infection secondary to Citrobacter. Currently, the Citrobacter is sensitive to cefepime. We will continue antibiotics. 4. Diabetes type 2, well controlled. Continue insulin sliding scale as well as Levemir. 5. Tobacco abuse. Continue nicotine patch. FBJ/MODL Ishmael Ng MD / [id number] CC: Ishmael Ng MD
--- NOTE | ~2016-04-29 | DS ---
Discharge Summary [facility] [address] [place]. [address] NAME: ELIZA MENJIVAR : 50 STATUS : DIS IN PAT#: [id number] AGE: 65 ADM/REG DATE : 04/29/16 MR#: [id number] REPORT SERV DATE: 05/14/16 DICTATED BY: RUDDY HAYS DATE: 05/13/16 REPORT STATUS : Draft TRANSCRIBED BY: MODL DATE: 05/13/16 ADMISSION DATE: 04/29/2016 DISCHARGE DATE: 05/13/2016 CONSULTANTS: 1. Dr. Loren Rachel, Pulmonary. 2. Dr. Scott Chambers, Nephrology. DISCHARGE DIAGNOSES: 1. Acute on chronic hypercapnic hypoxic respiratory failure. 2. Acute exacerbation of chronic obstructive pulmonary disease, oxygen dependent, in a cigarette smoker. 3. Right upper lobe healthcare-associated pneumonia. 4. Hypertension. 5. Diabetes mellitus type 2 with A1c 5.9% on 02/28/2016. 6. Obesity hypoventilation syndrome with obstructive sleep apnea and body mass index of 35.9. 7. Chronic stasis dermatitis on legs. 8. Chronic atrial fibrillation with recent rapid ventricular response. 9. History of previous coronary bypass. 10.History of common variable immunodeficiency. 11.Citrobacter urinary tract infection. 12.Acute kidney injury with hyperkalemia, acute, transient, superimposed on stage 3 chronic kidney disease. 13.Major depressive disorder with generalized anxiety. 14.Hypothyroidism. HISTORY: This patient had just been here 03/27/2016 through 04/09/2016 for acute hypercapnic hypoxic respiratory failure. She was sent back to our facility from [facility] with lethargy and referred to our team for inpatient care. She was also followed by Dr. Loren Rachel of Pulmonary for this acute exacerbation of her COPD with suspected healthcare- associated pneumonia and urinary tract infection. Blood cultures, no growth. No sputum cultures were obtained. Her procalcitonins were normal. CT scan of the chest on 04/30/2016 showed a nodule in right middle lobe, 7 x 10 x 19 mm, new since 01/13/2014; regular noncalcified nodule, posterior medial aspect of right middle lobe, 3 x 8 mm, new since 01/13/2014; atelectasis in the dependent portion of both lungs; mild cardiomegaly with moderate to heavy coronary artery calcification and previous coronary stenting. The patient was given broad-spectrum antibiotics and had improvement clinically. She was needing BiPAP at bedtime and this helped considerably. She was weaned off most of her sedating narcotics and benzodiazepines. She is on BuSpar for anxiety and seems to be doing well with this. This has also allowed her to be more alert. She had Citrobacter in her urine. It was sensitive to the cefepime that she received here Discharge Summary [facility] [address] [place]. [address] NAME: ELIZA MENJIVAR : 50 STATUS : DIS IN PAT#: [id number] AGE: 65 ADM/REG DATE : 04/29/16 MR#: [id number] REPORT SERV DATE: 05/14/16 DICTATED BY: RUDDY HAYS DATE: 05/13/16 REPORT STATUS : Draft TRANSCRIBED BY: COLBY DATE: 05/13/16 in the hospital. She did develop acute kidney injury and was seen by Nephrology, Dr. Chambers. Her Maxzide and her Cozaar were held. Metformin was held. She was given IV fluids. Her creatinine at its highest was 2.54, at discharge was improved to 1.4. She did have some hyperkalemia with potassium up to 6.3, this was treated and improved quickly. By discharge, her creatinine was 4.5. She is on Eliquis for her chronic atrial fibrillation. Her hemoglobin is 9.2, which is stable for her. She is felt to need inpatient rehab and she hopes to return to [facility]. The Pulmonary recommends a repeat CT scan of the chest in THREE MONTHS. DISCHARGE MEDICATIONS: Will include Eliquis 5 mg b.i.d.; Abilify 5 mg at bedtime, which is a chronic medicine for her; aspirin 81 mg daily; BuSpar 5 mg b.i.d.; Coreg 3.125 mg b.i.d., hold if systolic less than 100 or heart rate less than 50; vitamin B12 of 1000 mcg every 30 days; Cymbalta 60 mg daily; Zantac 300 mg b.i.d.; gabapentin 600 mg b.i.d.; Levemir 28 units twice a day; NovoLog level 1 a.c. and h.s.; Imdur 60 mg daily; levothyroxine 50 mcg daily; Singulair 10 mg daily; nicotine patch 21 mg twice daily; MiraLAX one packet twice a day; Rythmol 300 mg p.o. q.8 hours, started by Dr. Parson of Cardiology during her last hospitalization here 04/02/2016; Spiriva, one capsule inhaled daily; albuterol nebulized q.4 hours p.r.n. shortness of breath; Brovana 15 mcg inhaled twice a day; Pulmicort 1 mg twice a day; Tylenol 650 q.4 hours p.r.n. pain; Dulcolax 10 mg suppository p.r.n. daily; glucose tablets p.r.n. hypoglycemia; Penitas 5/325 q.12 hours p.r.n. pain, #6 written on prescription; lactulose 45 mL p.o. t.i.d. p.r.n. constipation; and Crestor 5 mg at bedtime. A BiPAP 16/6 with rate of 12, FiO2 of 32%. I spent 46 minutes today with the patient. RSG/MODL uRddy Hays M.D. / [id number] CC: Isi Henderson IV, M.D. Dannis Hood Jr., M.D. [facility]
--- NOTE | ~2016-04-29 | HP ---
History And Physical [facility] [address] [place]. [address] NAME: ELIZA MENJIVAR : 50 STATUS : ADM IN [facility]#: [id number] AGE: 65 ADM/REG DATE : 04/29/16 MR#: [id number] REPORT SERV DATE: 04/29/16 DICTATED BY: GEORGINA WINTER DATE: 04/29/16 REPORT STATUS : Draft TRANSCRIBED BY: MODL DATE: 04/29/16 DATE OF ADMISSION: 04/29/2016 REASON FOR ADMISSION: Bilateral lower lobe pneumonia. HISTORY: This is a 65-year-old white female who was just discharged on April 10 with acute exacerbation of COPD. She has been at [facility] where she has been restrained from smoking cigarettes. She has recently been in the hospital where she was in the intensive care unit with a prolonged course of hypercarbic and hypercapnic respiratory failure. She had atrial fibrillation and was seen in consultation by Dr. Parson during that time. She is from [facility] and had problems with compliance for her COPD with continued smoking 6 cigarettes. She was lethargic and unable to respond earlier. She was evaluated in the emergency room by Dr. Candy Gallo who got the complaint that she was just feeling sick all over. She had no fever or chills. She was breathing slowly with no tachypnea. She did complain of some abdominal pain and she had a CT scan of the abdomen which showed some fecal stasis with bilateral lower lobe consolidation. She was also found to have a urinary tract infection and some anemia. We are asked to admit the patient for the cacophony of her medical problems without many complaints. The patient is lethargic and unable to give history except with very focused questioning. Arterial blood gas is being ordered stat with the patient's prior history of the hypercarbic respiratory failure. Her CT scan of her chest showed moderate to large amount of fecal material in the bowel post hysterectomy, dense consolidation in the posterior basilar aspects of the lower lobes of both lungs, suspicious for pneumonia; nodular opacity in the posterior right middle lobe 11 x 7 mm where some patchy nodular densities had been on 01/28/2014, most of which had resolved. Mild cardiomegaly. The patient did have a prolonged hospital course with antibiotics. She had atrial fibrillation with the Cardizem drip that was given before. She still remains in atrial fibrillation. She does have adult onset diabetes mellitus. Blood sugars were elevated. PAST MEDICAL HISTORY: Common variable immune deficiency, history of diabetes, atrial fibrillation, diastolic congestive heart failure, obesity, coronary artery disease, and obstructive sleep apnea. Echocardiogram showed ejection fraction of 55% on prior evaluation. She is to follow up with her quality assurance group leader Dr. Domínguez and her media traffic manager, Dr. Elsa Parson in 4 weeks. This was from the discharge summary dictated on 04/10/[address] Perez, the nurse practitioner. PAST HISTORY: Severe COPD and has been on chronic oxygen at home. She has diastolic congestive heart failure with preserved ejection fraction of 55%. She has had coronary History And Physical [address] [address] NAME: ELIZA MENJIVAR : 50 STATUS : ADM IN [facility]#: [id number] AGE: 65 ADM/REG DATE : 04/29/16 MR#: [id number] REPORT SERV DATE: 04/29/16 DICTATED BY: GEORGINA WINTER DATE: 04/29/16 REPORT STATUS : Draft TRANSCRIBED BY: COLBY DATE: 04/29/16 artery disease. She has had a stent placed in the past by Dr. Parson. History of hypothyroidism, morbid obesity, hyperlipidemia, bipolar disorder, obstructive sleep apnea noncompliant with CPAP, may have been on BiPAP at home. History of rheumatoid arthritis, diabetes type 2, and had a spiral displaced humeral fracture on the left side in [address] Larry Gilliland for that. SURGICAL HISTORY: She has had a hysterectomy and left hip replacement, knee joint surgery, and bilateral carpal tunnel release. SOCIAL HISTORY: She lives in the sn[place] now. She was , lived in [place], [place], had 3 children and 5 grandchildren. No alcohol use. FAMILY HISTORY: History of congestive heart failure, COPD, diabetes, and breast cancer running in the family by review of previous chart. REVIEW OF SYSTEMS: Difficult to obtain as the patient answers only very directed questions and is slow to answer these. PHYSICAL EXAMINATION: GENERAL: Obtunded white female in no acute distress. VITAL SIGNS: Her blood pressure initially was 116/66 with a heart rate of 83, respiratory rate 18, afebrile to touch, and oxygen saturation 92% when she came in. HEENT: Extraocular movements are intact. She does have obese facies and short fat neck without bruit, thyromegaly, or JVD ascertainable. CHEST: Clear to tidal volume breathing. HEART: Irregularly irregular S1, S2 with a 2/6 systolic murmur along the left sternal border. ABDOMEN: Obese, nontender. Bowel sounds are positive. EXTREMITIES: Have edema 2+ bilaterally with a palpable dorsalis pedis pulse bilaterally. SKIN: Without rash, ecchymosis, or bruising. LABORATORY DATA: Urinalysis was done that showed greater than 182 white cells per high- powered field and many clumps of white cells, large leukocyte esterase, positive nitrite, specific gravity of 1.011, and pH of 5. [place] [address], hemoglobin 9.8, hematocrit 29.9, and platelets were 371,000. The CMP showed a sodium of 130 which has been a problem in the past with hyponatremia, potassium of 4.4, chloride of 89, creatinine 1.54, glucose 123, albumin 2.9, alkaline phosphatase of 127, and lipase of 50. Her digoxin level was 1.4. The rhythm strips show atrial fibrillation with a controlled ventricular response. ASSESSMENT: 1. Obtunded state, altered mental status with lack of acuity. We will check arterial blood gas as the patient is presenting with hypercarbic respiratory failure in the past and has history of chronic obstructive pulmonary disease. History And Physical [address] [address] NAME: ELIZA MENJIVAR : 50 STATUS : ADM IN [facility]#: [id number] AGE: 65 ADM/REG DATE : 04/29/16 MR#: [id number] REPORT SERV DATE: 04/29/16 DICTATED BY: GEORGINA WINTER DATE: 04/29/16 REPORT STATUS : Draft TRANSCRIBED BY: MODL DATE: 04/29/16 2. Possible bilateral lower lobe pneumonia by CT scan of the abdomen in which there was an incidental finding of bilateral lower lobe consolidation. This may be inducing the respiratory failure that was occult. 3. Severe chronic obstructive pulmonary disease. 4. Atrial fibrillation with a controlled ventricular response now with adequate digoxin level. 5. History of obstructive sleep apnea. 6. Adult onset diabetes mellitus. 7. Hypertension. 8. History of rheumatoid arthritis. 9. Common variable immune deficiency, previously on IgG infusions. 10.History of left hip surgery, numerous surgeries, left knee surgery with scar suspicious for knee joint replacement, history of hysterectomy, and carpal tunnel release. 11.Incomplete database. I believe that the high priority should be the arterial blood gas that is not yet drawn. We will decide on disposition of the patient from the emergency room based on the ABG. Consideration for BiPAP will be given and IM ICU treatment. Identification of home medications yet pending. We will continue the Eliquis she was on based on the discharge summary dictated on 04/10/2016 by Celestino Elliott. At that time, the discharge medications were as follows: Amlodipine 5 mg p.o. daily; Abilify 5 mg at bedtime; aspirin 81 mg p.o. daily; Coreg 3.125 p.o. b.i.d.; digoxin 0.125 p.o. daily; Cymbalta 60 mg p.o. daily; gabapentin 600 mg p.o. b.i.d.; Synthroid 50 mcg p.o. daily; insulin sliding scale level 2 before meals and bedtime; losartan 50 mg p.o. daily; Singulair 10 mg p.o. daily; Imdur 60 mg p.o. daily; MiraLAX 1 packet twice daily; Rythmol 225 mg p.o. q.8 hours; Catapres-TTS patch #2 every 7 days; prednisone 20 mg a day that was to be taken through 04/17/2016; Levemir 25 units subcu b.i.d.; Tylenol 650 p.o. p.r.n.; Mylanta p.r.n.; Dulcolax 10 mg p.r.n. for constipation; metformin a 1000 mg p.o. b.i.d.; [place] 10/325 one tablet every 4 hours p.r.n. pain which may have been too much for her with her severe hypercarbic COPD; vitamin B12 1000 mcg p.o. every 30 days; Crestor 5 mg p.o. daily; Spiriva 1 capsule daily; and Maxzide 37.5/25 one tablet p.o. daily. PLAN: We will check ABGs now and work through disposition. DB/MODL Georgina Winter M.D. / [id number] CC: Isi Dhillon IV, M.D. [facility], History And Physical [address] [address] NAME: ELIZA MENJIVAR : 50 STATUS : ADM IN PAT#: [id number] AGE: 65 ADM/REG DATE : 04/29/16 MR#: [id number] REPORT SERV DATE: 04/29/16 DICTATED BY: GEORGINA WINTER DATE: 04/29/16 REPORT STATUS : Draft TRANSCRIBED BY: MODL DATE: 04/29/16 Isi Negron Jr., M.D.
[2016-04-29 13:46] LABS: BASOPHILS 0.3 %; BASOPHILS ABSOLUTE 0.03 10/3/uL (0.0-0.16); EOSINOPHILS 1.7 %; ER CBC TAT 0 Hrs 07 Mins; HEMATOCRIT 29.9 % (36.0-48.0); HEMOGLOBIN 9.8 g/dL (12.0-16.0); IMMATURE GRANULOCYTES 2.5 %; LYMPHOCYTES ABSOLUTE 2.15 10/3/uL (0.67-4.30); MEAN CORPUSCULAR HEMOGLOB 27.3 pg (26.0-34.0); MEAN PLATELET VOLUME 9.1 fL (9.2-13.0); MONOCYTES 5.7 %; MONOCYTES ABSOLUTE 0.68 10/3/uL (0.21-1.20); NEUTROPHILS 71.8 %; NEUTROPHILS ABSOLUTE 8.58 10/3/uL (2.02-8.40); PLATELET COUNT 371 10/3/uL (150-400); RBC DISTRIBUTION WIDTH 15.9 % (12.0-16.0); RED CELL COUNT 3.59 10/6/uL (4.0-5.6); WHITE BLOOD CELLS 11.9 10/3/uL (4.5-10.5)
[2016-04-29 13:47] LABS: MANUAL DIFF NO %; MEAN CORPUS HGB CONC 32.8 g/dL (32.0-36.0); MEAN CORPUSCULAR VOLUME 83.3 fL (80-100)
[2016-04-29 14:00] LABS: A/G RATIO 0.6 (0.7-1.9); ALBUMIN 2.9 G/DL (3.5-5.0); ALKALINE PHOSPHATASE 127 U/L (45-117); BUN (BLOOD UREA NITROGEN) 17 MG/DL (6-23); CALCIUM, SERUM 8.7 MG/DL (8.5-10.4); CHLORIDE, SERUM 89 MMOL/L (96-112); CO2 (CARBON DIOXIDE) 27 MMOL/L (24-34); CREATININE 1.54 MG/DL (0.55-1.02); GFR AFRICAN AMERICAN 41 ML/MIN (>=60); GFR NON AFRICAN AMERICAN 35 ML/MIN (>=60); GLOBULIN 4.5 G/DL (2.5-4.1); GLUCOSE, SERUM 123 MG/DL (60-99); POTASSIUM, SERUM 4.4 MMOL/L (3.5-5.3); SGOT(AST) 14 U/L (5-40); SGPT(ALT) 25 U/L (5-65); SODIUM, SERUM 130 MMOL/L (135-148); TOTAL BILIRUBIN 0.3 MG/DL (0-1.2); TOTAL PROTEIN 7.4 G/DL (6.0-8.5)
[~2016-04-29 14:00] MED LIST changes: +DULERA
[2016-04-29 14:05] LABS: BAND NEUTROPHILS 15 %; ER DIFF TAT 0 Hrs 26 Mins; IMMATURE GRANS ABSOLUTE (CALC) 0.36 10/3/uL (0.0-0.11); LYMPHOCYTES 14 %; LYMPHOCYTES ABSOLUTE (CALC) 1.67 10/3/uL (0.67-4.30); METAMYELOCYTES 3 %; MONOCYTES 5 %; NEUTROPHILS ABSOLUTE (CALC) 9.28 10/3/uL (2.02-8.40); PLATELET ESTIMATE ADQ (ADEQUATE); RBC MORPHOLOGY NORM (NORMAL); SEGMENTED NEUTROPHIL (0) 63 %; TOTAL NUCLEATED CELLS 100
[2016-04-29 14:51] LABS: ASCORBIC ACID (UR NOT ORDER) NEG (NEG); BILIRUBIN, URINE NEGATIVE (NEG); ER URINALYSIS TAT 0 Hrs 09 Mins; KETONE, URINE NEGATIVE (NEG); LEUKOCYTE ESTERASE(NOT OR LARGE (NEG)
[2016-04-29 14:52] LABS: NITRITE (URINE) POS (NEG); WBC (NOT ORDERED) (RFLEX) > 182 (0-5)
[2016-04-29] MEDS ORDERED: NORV5 PO (16:53)
[2016-04-29] MEDS ORDERED: ABILIFY5 PO (16:53)
[2016-04-29] MEDS ORDERED: CATAPRES2 TOP (16:54)
[2016-04-29] MEDS ORDERED: B121000P IM (16:54)
[2016-04-29] MEDS ORDERED: HALF81 PO (16:54)
[2016-04-29] MEDS ORDERED: COREG3 PO (16:54)
[2016-04-29] MEDS ORDERED: ELIQUIS 5 MG TAB5 MG PO (16:55)
[2016-04-29] MEDS ORDERED: CYMBALTA60 PO (16:55)
[2016-04-29] MEDS ORDERED: DULERA 200 MCG/13 GM INH (16:55)
[2016-04-29] MEDS ORDERED: LAN25 PO (16:55)
[2016-04-29] MEDS ORDERED: IMDUR60 PO (16:56)
[2016-04-29] MEDS ORDERED: NEUR600 PO (16:56)
[2016-04-29] MEDS ORDERED: HUMALOG SC (16:56)
[2016-04-29] MEDS ORDERED: COZ50 PO (16:57)
[2016-04-29] MEDS ORDERED: LEVOTHYROXIN50 MCG PO (16:57)
[2016-04-29] MEDS ORDERED: LEVEMIR SC (16:57)
[2016-04-29] MEDS ORDERED: MIRALAX POWDER1 PKT PO (16:58)
[2016-04-29] MEDS ORDERED: SINGULAIR1 PO (16:58)
[2016-04-29] MEDS ORDERED: GLUCOPHAGE1000 MG PO (16:58)
[2016-04-29] MEDS ORDERED: RYTHMOL300 MG PO (16:59)
[2016-04-29] MEDS ORDERED: ZANTAC300 MG PO (16:59)
[2016-04-29] MEDS ORDERED: CRESTOR5 MG PO (17:00)
[2016-04-29] MEDS ORDERED: SPIRIVA INH (17:00)
[2016-04-29] MEDS ORDERED: MAX25 PO (17:01)
[2016-04-29] MEDS ORDERED: ALBUTEROL0.63 MG/3 INH (17:01)
[2016-04-29] MEDS ORDERED: BISR PR (17:02)
[2016-04-29] MEDS ORDERED: MOMUD PO (17:03)
[2016-04-29] MEDS ORDERED: FLEETS ENEMA PR (17:03)
[2016-04-29] MEDS ORDERED: NORCO1 TAB PO (17:03)
[2016-04-29 17:36] LABS: PROCALCITONIN 0.05 ng/mL (<0.5)
[2016-04-29 17:39] LABS: ALLENS TEST Pos; BE (BASE EXCESS) -1.4 MEQ/L (0 +/- 2.5); CARBOXYHEMOGLOBIN 1.4 % (0-3); DEVICE NC; HCO3 (ACTUAL BICARBONATE) 25.3 MEQ/L (23-27); HEMOBLOGIN CONTENT 10.1 G/DL (12-16); INSTRUMENT SERIAL # 8087; METHEMOGLOBIN 0.2 % (0-3); O2 CONTENT 11.8 VOL% (18-24); OPERATOR ID 35188; PCO2 (CO2 TENSION) 53 MMHG (35-45); PO2 (O2 TENSION) 52 MMHG (79-93); SAMPLE Arterial
[2016-04-30 03:27] LABS: BE (BASE EXCESS) 2.8 MEQ/L (0 +/- 2.5); BIPAP 16/8 cm.H2O; CARBOXYHEMOGLOBIN 0.5 % (0-3); HCO3 (ACTUAL BICARBONATE) 29.8 MEQ/L (23-27); HEMOBLOGIN CONTENT 9.8 G/DL (12-16); INSTRUMENT SERIAL # 8083; METHEMOGLOBIN 0.1 % (0-3); OPERATOR ID 19993; PCO2 (CO2 TENSION) 59 MMHG (35-45); PO2 (O2 TENSION) 74 MMHG (79-93); SAMPLE Arterial; pH 7.32 (7.37-7.43)
[2016-04-30 04:52] LABS: BASOPHILS 0.3 %; BASOPHILS ABSOLUTE 0.04 10/3/uL (0.0-0.16); EOSINOPHILS 1.3 %; EOSINOPHILS ABSOLUTE 0.16 10/3/uL (0.0-0.53); HEMATOCRIT 29.5 % (36.0-48.0); HEMOGLOBIN 9.5 g/dL (12.0-16.0); IMMATURE GRANULOCYTES 2.1 %; IMMATURE GRANULOCYTES ABSOLUTE 0.27 10/3/uL (0.0-0.11); LYMPHOCYTES 14.5 %; LYMPHOCYTES ABSOLUTE 1.84 10/3/uL (0.67-4.30); MEAN CORPUS HGB CONC 32.2 g/dL (32.0-36.0); MEAN CORPUSCULAR HEMOGLOB 27.3 pg (26.0-34.0); MEAN CORPUSCULAR VOLUME 84.8 fL (80-100); MEAN PLATELET VOLUME 9.5 fL (9.2-13.0); MONOCYTES 6.2 %; MONOCYTES ABSOLUTE 0.78 10/3/uL (0.21-1.20); NEUTROPHILS 75.6 %; NEUTROPHILS ABSOLUTE 9.59 10/3/uL (2.02-8.40); NUCLEATED RED BLOOD CELLS 0.5 /100WBC (0-0); PLATELET COUNT 362 10/3/uL (150-400); RBC DISTRIBUTION WIDTH 16.2 % (12.0-16.0); RED CELL COUNT 3.48 10/6/uL (4.0-5.6); WHITE BLOOD CELLS 12.7 10/3/uL (4.5-10.5)
[2016-04-30 04:53] LABS: MANUAL DIFF NO %
[2016-04-30 05:11] LABS: BUN (BLOOD UREA NITROGEN) 20 MG/DL (6-23); CALCIUM, SERUM 8.9 MG/DL (8.5-10.4); CHLORIDE, SERUM 94 MMOL/L (96-112); CO2 (CARBON DIOXIDE) 27 MMOL/L (24-34); CREATININE 1.31 MG/DL (0.55-1.02); GFR AFRICAN AMERICAN 49 ML/MIN (>=60); GFR NON AFRICAN AMERICAN 43 ML/MIN (>=60); GLUCOSE, SERUM 128 MG/DL (60-99); POTASSIUM, SERUM 4.9 MMOL/L (3.5-5.3); SODIUM, SERUM 130 MMOL/L (135-148)
[2016-04-30 11:13] LABS: CARBOXYHEMOGLOBIN 1.5 % (0-3); HEMOBLOGIN CONTENT 9.6 G/DL (12-16); INSTRUMENT SERIAL # 8087; METHEMOGLOBIN 0.3 % (0-3); O2 CONTENT 11.9 VOL% (18-24); PCO2 (CO2 TENSION) 59 MMHG (35-45); PO2 (O2 TENSION) 61 MMHG (79-93); SAMPLE Arterial; pH 7.32 (7.37-7.43)
[2016-04-30 11:14] LABS: ALLENS TEST Pos; BIPAP 16/8 cm.H2O; OPERATOR ID 35188
[2016-04-30 14:00] LABS: ALLENS TEST Pos; BE (BASE EXCESS) 2.8 MEQ/L (0 +/- 2.5); CARBOXYHEMOGLOBIN 0.9 % (0-3); DEVICE NC; HCO3 (ACTUAL BICARBONATE) 28.7 MEQ/L (23-27); HEMOBLOGIN CONTENT 9.7 G/DL (12-16); INSTRUMENT SERIAL # 8083; METHEMOGLOBIN 0.2 % (0-3); O2 CONTENT 12.8 VOL% (18-24); OPERATOR ID 14947; PCO2 (CO2 TENSION) 51 MMHG (35-45); PO2 (O2 TENSION) 72 MMHG (79-93); SAMPLE Arterial; pH 7.37 (7.37-7.43)
[2016-05-01 05:10] LABS: A/G RATIO 0.7 (0.7-1.9); ALBUMIN 2.8 G/DL (3.5-5.0); ALKALINE PHOSPHATASE 122 U/L (45-117); BUN (BLOOD UREA NITROGEN) 22 MG/DL (6-23); CALCIUM, SERUM 8.6 MG/DL (8.5-10.4); CHLORIDE, SERUM 92 MMOL/L (96-112); CO2 (CARBON DIOXIDE) 24 MMOL/L (24-34); CREATININE 1.28 MG/DL (0.55-1.02); GFR AFRICAN AMERICAN 51 ML/MIN (>=60); GFR NON AFRICAN AMERICAN 44 ML/MIN (>=60); GLOBULIN 4.3 G/DL (2.5-4.1); PHOSPHORUS, SERUM 2.3 MG/DL (2.5-4.5); POTASSIUM, SERUM 4.7 MMOL/L (3.5-5.3); SGOT(AST) 10 U/L (5-40); SGPT(ALT) 19 U/L (5-65); SODIUM, SERUM 127 MMOL/L (135-148); TOTAL BILIRUBIN 0.3 MG/DL (0-1.2); TOTAL PROTEIN 7.1 G/DL (6.0-8.5)
[2016-05-01 05:16] LABS: GLUCOSE, SERUM 225 MG/DL (60-99)
[2016-05-01 05:19] LABS: HEMATOCRIT 28.9 % (36.0-48.0); HEMOGLOBIN 9.2 g/dL (12.0-16.0); MEAN CORPUS HGB CONC 31.8 g/dL (32.0-36.0); MEAN CORPUSCULAR HEMOGLOB 26.7 pg (26.0-34.0); MEAN CORPUSCULAR VOLUME 83.8 fL (80-100); MEAN PLATELET VOLUME 9.7 fL (9.2-13.0); NUCLEATED RED BLOOD CELLS 0.2 /100WBC (0-0); PLATELET COUNT 389 10/3/uL (150-400); RBC DISTRIBUTION WIDTH 15.8 % (12.0-16.0); RED CELL COUNT 3.45 10/6/uL (4.0-5.6); WHITE BLOOD CELLS 12.4 10/3/uL (4.5-10.5)
[2016-05-01 05:23] LABS: MANUAL DIFF YES %
[2016-05-01 07:16] LABS: BAND NEUTROPHILS 10 %; HYPOCHROMIA 1+ (3-10/OIF) (0-2/OIF); IMMATURE GRANS ABSOLUTE (CALC) 0.37 10/3/uL (0.0-0.11); LYMPHOCYTES 9 %; LYMPHOCYTES ABSOLUTE (CALC) 1.12 10/3/uL (0.67-4.30); METAMYELOCYTES 3 %; MONOCYTES 2 %; MONOCYTES ABSOLUTE (CALC) 0.25 10/3/uL (0.21-1.20); NEUTROPHILS ABSOLUTE (CALC) 10.66 10/3/uL (2.02-8.40); PLATELET ESTIMATE ADQ (ADEQUATE); SEGMENTED NEUTROPHIL (0) 76 %; TOTAL NUCLEATED CELLS 100
[2016-05-01 07:17] LABS: MICROCYTES 1+ (5-10/OIF) (0-5/OIF)
[2016-05-02 05:50] LABS: HEMATOCRIT 27.2 % (36.0-48.0); HEMOGLOBIN 8.8 g/dL (12.0-16.0); MEAN CORPUS HGB CONC 32.4 g/dL (32.0-36.0); MEAN CORPUSCULAR HEMOGLOB 26.9 pg (26.0-34.0); MEAN CORPUSCULAR VOLUME 83.2 fL (80-100); MEAN PLATELET VOLUME 9.5 fL (9.2-13.0); PLATELET COUNT 443 10/3/uL (150-400); RED CELL COUNT 3.27 10/6/uL (4.0-5.6)
[2016-05-02 05:55] LABS: MANUAL DIFF YES %; WHITE BLOOD CELLS 21.4 10/3/uL (4.5-10.5)
[2016-05-02 06:06] LABS: A/G RATIO 0.6 (0.7-1.9); ALBUMIN 2.8 G/DL (3.5-5.0); ALKALINE PHOSPHATASE 112 U/L (45-117); CALCIUM, SERUM 8.3 MG/DL (8.5-10.4); CHLORIDE, SERUM 89 MMOL/L (96-112); CO2 (CARBON DIOXIDE) 24 MMOL/L (24-34); CREATININE 1.58 MG/DL (0.55-1.02); GFR AFRICAN AMERICAN 39 ML/MIN (>=60); GFR NON AFRICAN AMERICAN 34 ML/MIN (>=60); GLOBULIN 4.4 G/DL (2.5-4.1); GLUCOSE, SERUM 208 MG/DL (60-99); PHOSPHORUS, SERUM 2.7 MG/DL (2.5-4.5); POTASSIUM, SERUM 4.9 MMOL/L (3.5-5.3); SGOT(AST) 14 U/L (5-40); SGPT(ALT) 30 U/L (5-65); SODIUM, SERUM 125 MMOL/L (135-148); TOTAL BILIRUBIN 0.5 MG/DL (0-1.2); TOTAL PROTEIN 7.2 G/DL (6.0-8.5)
[2016-05-02 06:07] LABS: BUN (BLOOD UREA NITROGEN) 31 MG/DL (6-23)
[2016-05-02 07:28] LABS: BAND NEUTROPHILS 11 %; LYMPHOCYTES 7 %; METAMYELOCYTES 6 %; MONOCYTES 5 %; MONOCYTES ABSOLUTE (CALC) 1.07 10/3/uL (0.21-1.20); MYELOCYTES 1 %; NEUTROPHILS ABSOLUTE (CALC) 17.33 10/3/uL (2.02-8.40); PLATELET ESTIMATE SLT INC (ADEQUATE); RBC MORPHOLOGY NORM (NORMAL); SEGMENTED NEUTROPHIL (0) 70 %; TOTAL NUCLEATED CELLS 100
[2016-05-02 15:37] LABS: ASCORBIC ACID (UR NOT ORDER) NEG (NEG); BILIRUBIN, URINE NEGATIVE (NEG); KETONE, URINE NEGATIVE (NEG); LEUKOCYTE ESTERASE(NOT OR TRACE (NEG); WBC (NOT ORDERED) (RFLEX) 17 (0-5)
[2016-05-03 12:59] LABS: BUN (BLOOD UREA NITROGEN) 32 MG/DL (6-23); CALCIUM, SERUM 9.1 MG/DL (8.5-10.4); CHLORIDE, SERUM 93 MMOL/L (96-112); CO2 (CARBON DIOXIDE) 28 MMOL/L (24-34); CREATININE 1.17 MG/DL (0.55-1.02); GFR AFRICAN AMERICAN 57 ML/MIN (>=60); GFR NON AFRICAN AMERICAN 49 ML/MIN (>=60); POTASSIUM, SERUM 4.7 MMOL/L (3.5-5.3); SODIUM, SERUM 129 MMOL/L (135-148)
[2016-05-03 13:00] LABS: GLUCOSE, SERUM 146 MG/DL (60-99)
[2016-05-04 06:39] LABS: HEMATOCRIT 29.9 % (36.0-48.0); MEAN CORPUS HGB CONC 33.4 g/dL (32.0-36.0); MEAN CORPUSCULAR HEMOGLOB 27.2 pg (26.0-34.0); MEAN CORPUSCULAR VOLUME 81.3 fL (80-100); MEAN PLATELET VOLUME 9.2 fL (9.2-13.0); PLATELET COUNT 429 10/3/uL (150-400); RBC DISTRIBUTION WIDTH 16.3 % (12.0-16.0); RED CELL COUNT 3.68 10/6/uL (4.0-5.6); WHITE BLOOD CELLS 16.5 10/3/uL (4.5-10.5)
[2016-05-04 06:42] LABS: MANUAL DIFF YES %
[2016-05-04 06:54] LABS: A/G RATIO 0.7 (0.7-1.9); ALKALINE PHOSPHATASE 120 U/L (45-117); BUN (BLOOD UREA NITROGEN) 35 MG/DL (6-23); CHLORIDE, SERUM 93 MMOL/L (96-112); CO2 (CARBON DIOXIDE) 28 MMOL/L (24-34); CREATININE 1.13 MG/DL (0.55-1.02); GFR AFRICAN AMERICAN 59 ML/MIN (>=60); GFR NON AFRICAN AMERICAN 51 ML/MIN (>=60); GLOBULIN 4.1 G/DL (2.5-4.1); PHOSPHORUS, SERUM 3.5 MG/DL (2.5-4.5); POTASSIUM, SERUM 4.4 MMOL/L (3.5-5.3); SGOT(AST) 15 U/L (5-40); SGPT(ALT) 28 U/L (5-65); SODIUM, SERUM 133 MMOL/L (135-148); TOTAL BILIRUBIN 0.3 MG/DL (0-1.2); TOTAL PROTEIN 7.1 G/DL (6.0-8.5)
[2016-05-04 06:55] LABS: GLUCOSE, SERUM 110 MG/DL (60-99)
[2016-05-04 07:08] LABS: BAND NEUTROPHILS 2 %; EOSINOPHILS 1 %; EOSINOPHILS ABSOLUTE (CALC) 0.17 10/3/uL (0.0-0.53); IMMATURE GRANS ABSOLUTE (CALC) 0.33 10/3/uL (0.0-0.11); LYMPHOCYTES 12 %; LYMPHOCYTES ABSOLUTE (CALC) 1.98 10/3/uL (0.67-4.30); METAMYELOCYTES 2 %; MONOCYTES 10 %; MONOCYTES ABSOLUTE (CALC) 1.65 10/3/uL (0.21-1.20); NEUTROPHILS ABSOLUTE (CALC) 12.38 10/3/uL (2.02-8.40); PLATELET ESTIMATE SLT INC (ADEQUATE); RBC MORPHOLOGY NORM (NORMAL); SEGMENTED NEUTROPHIL (0) 73 %; TOTAL NUCLEATED CELLS 100
[2016-05-05 08:45] LABS: HEMOGLOBIN 10.6 g/dL (12.0-16.0); MEAN CORPUS HGB CONC 32.2 g/dL (32.0-36.0); MEAN CORPUSCULAR HEMOGLOB 27.1 pg (26.0-34.0); MEAN PLATELET VOLUME 9.2 fL (9.2-13.0); PLATELET COUNT 438 10/3/uL (150-400); RBC DISTRIBUTION WIDTH 16.2 % (12.0-16.0); RED CELL COUNT 3.91 10/6/uL (4.0-5.6)
[2016-05-05 08:49] LABS: HEMATOCRIT 32.9 % (36.0-48.0); MANUAL DIFF YES %; MEAN CORPUSCULAR VOLUME 84.1 fL (80-100)
[2016-05-05 09:00] LABS: A/G RATIO 0.7 (0.7-1.9); ALKALINE PHOSPHATASE 122 U/L (45-117); BUN (BLOOD UREA NITROGEN) 35 MG/DL (6-23); CALCIUM, SERUM 8.6 MG/DL (8.5-10.4); CHLORIDE, SERUM 92 MMOL/L (96-112); CO2 (CARBON DIOXIDE) 27 MMOL/L (24-34); CREATININE 1.28 MG/DL (0.55-1.02); GFR AFRICAN AMERICAN 51 ML/MIN (>=60); GFR NON AFRICAN AMERICAN 44 ML/MIN (>=60); GLOBULIN 4.3 G/DL (2.5-4.1); POTASSIUM, SERUM 4.3 MMOL/L (3.5-5.3); SGOT(AST) 15 U/L (5-40); SGPT(ALT) 28 U/L (5-65); SODIUM, SERUM 129 MMOL/L (135-148); TOTAL BILIRUBIN 0.3 MG/DL (0-1.2); TOTAL PROTEIN 7.3 G/DL (6.0-8.5)
[2016-05-05 09:01] LABS: GLUCOSE, SERUM 190 MG/DL (60-99)
[2016-05-05 09:32] LABS: BAND NEUTROPHILS 12 %; EOSINOPHILS 1 %; EOSINOPHILS ABSOLUTE (CALC) 0.28 10/3/uL (0.0-0.53); IMMATURE GRANS ABSOLUTE (CALC) 0.56 10/3/uL (0.0-0.11); LYMPHOCYTES 8 %; LYMPHOCYTES ABSOLUTE (CALC) 2.24 10/3/uL (0.67-4.30); METAMYELOCYTES 2 %; MONOCYTES 7 %; MONOCYTES ABSOLUTE (CALC) 1.96 10/3/uL (0.21-1.20); NEUTROPHILS ABSOLUTE (CALC) 22.96 10/3/uL (2.02-8.40); PLATELET ESTIMATE SLT DEC (ADEQUATE); POLYCHROMASIA 1+ (2-5/OIF) (0-1/OIF); SEGMENTED NEUTROPHIL (0) 70 %; TOTAL NUCLEATED CELLS 100
[2016-05-05 10:05] LABS: HEMATOCRIT 34.1 % (36.0-48.0); HEMOGLOBIN 10.8 g/dL (12.0-16.0); MANUAL DIFF YES %; MEAN CORPUS HGB CONC 31.7 g/dL (32.0-36.0); MEAN CORPUSCULAR HEMOGLOB 27.1 pg (26.0-34.0); MEAN CORPUSCULAR VOLUME 85.5 fL (80-100); MEAN PLATELET VOLUME 9.3 fL (9.2-13.0); NUCLEATED RED BLOOD CELLS 2.3 /100WBC (0-0); PLATELET COUNT 434 10/3/uL (150-400); RBC DISTRIBUTION WIDTH 16.4 % (12.0-16.0); RED CELL COUNT 3.99 10/6/uL (4.0-5.6); WHITE BLOOD CELLS 28.9 10/3/uL (4.5-10.5)
[2016-05-05 10:32] LABS: BAND NEUTROPHILS 9 %; EOSINOPHILS 1 %; EOSINOPHILS ABSOLUTE (CALC) 0.29 10/3/uL (0.0-0.53); IMMATURE GRANS ABSOLUTE (CALC) 0.29 10/3/uL (0.0-0.11); LYMPHOCYTES 8 %; LYMPHOCYTES ABSOLUTE (CALC) 2.31 10/3/uL (0.67-4.30); METAMYELOCYTES 1 %; MONOCYTES 6 %; MONOCYTES ABSOLUTE (CALC) 1.73 10/3/uL (0.21-1.20); NEUTROPHILS ABSOLUTE (CALC) 24.28 10/3/uL (2.02-8.40); PLATELET ESTIMATE ADQ (ADEQUATE); RBC MORPHOLOGY NORM (NORMAL); SEGMENTED NEUTROPHIL (0) 75 %; TOTAL NUCLEATED CELLS 100
[2016-05-06 06:23] LABS: HEMATOCRIT 32.2 % (36.0-48.0); HEMOGLOBIN 10.4 g/dL (12.0-16.0); MEAN CORPUS HGB CONC 32.3 g/dL (32.0-36.0); MEAN CORPUSCULAR HEMOGLOB 26.9 pg (26.0-34.0); MEAN CORPUSCULAR VOLUME 83.4 fL (80-100); MEAN PLATELET VOLUME 9.8 fL (9.2-13.0); NUCLEATED RED BLOOD CELLS 0.1 /100WBC (0-0); PLATELET COUNT 405 10/3/uL (150-400); RBC DISTRIBUTION WIDTH 16.5 % (12.0-16.0); RED CELL COUNT 3.86 10/6/uL (4.0-5.6); WHITE BLOOD CELLS 29.4 10/3/uL (4.5-10.5)
[2016-05-06 06:24] LABS: MANUAL DIFF YES %
[2016-05-06 06:48] LABS: A/G RATIO 0.6 (0.7-1.9); ALBUMIN 2.8 G/DL (3.5-5.0); ALKALINE PHOSPHATASE 125 U/L (45-117); BUN (BLOOD UREA NITROGEN) 33 MG/DL (6-23); CALCIUM, SERUM 9.2 MG/DL (8.5-10.4); CHLORIDE, SERUM 95 MMOL/L (96-112); CO2 (CARBON DIOXIDE) 23 MMOL/L (24-34); CREATININE 1.26 MG/DL (0.55-1.02); GFR AFRICAN AMERICAN 52 ML/MIN (>=60); GFR NON AFRICAN AMERICAN 45 ML/MIN (>=60); GLOBULIN 4.4 G/DL (2.5-4.1); PHOSPHORUS, SERUM 2.7 MG/DL (2.5-4.5); POTASSIUM, SERUM 4.8 MMOL/L (3.5-5.3); SGOT(AST) 14 U/L (5-40); SGPT(ALT) 24 U/L (5-65); SODIUM, SERUM 129 MMOL/L (135-148); TOTAL BILIRUBIN 0.3 MG/DL (0-1.2); TOTAL PROTEIN 7.2 G/DL (6.0-8.5)
[2016-05-06 06:48] LABS: BAND NEUTROPHILS 10 %; IMMATURE GRANS ABSOLUTE (CALC) 0.29 10/3/uL (0.0-0.11); LYMPHOCYTES 13 %; LYMPHOCYTES ABSOLUTE (CALC) 3.82 10/3/uL (0.67-4.30); METAMYELOCYTES 1 %; MONOCYTES 2 %; MONOCYTES ABSOLUTE (CALC) 0.59 10/3/uL (0.21-1.20); SEGMENTED NEUTROPHIL (0) 74 %; TOTAL NUCLEATED CELLS 100
[2016-05-06 06:49] LABS: GLUCOSE, SERUM 123 MG/DL (60-99)
[2016-05-06 06:49] LABS: PLATELET ESTIMATE SLT INC (ADEQUATE)
[2016-05-06 09:27] LABS: INFLUENZA A SCREEN NEGATIVE (NEGATIVE); INFLUENZA B SCREEN NEGATIVE (NEGATIVE)
[2016-05-06 15:55] LABS: ALLENS TEST Pos; BE (BASE EXCESS) -0.4 MEQ/L (0 +/- 2.5); CARBOXYHEMOGLOBIN 0.3 % (0-3); DEVICE NC; HCO3 (ACTUAL BICARBONATE) 26.1 MEQ/L (23-27); HEMOBLOGIN CONTENT 10.3 G/DL (12-16); INSTRUMENT SERIAL # 8083; METHEMOGLOBIN 0.2 % (0-3); O2 CONTENT 13.8 VOL% (18-24); PCO2 (CO2 TENSION) 51 MMHG (35-45); PO2 (O2 TENSION) 73 MMHG (79-93); SAMPLE Arterial; pH 7.32 (7.37-7.43)
[2016-05-06 17:29] LABS: PROCALCITONIN 0.26 ng/mL (<0.5)
[2016-05-06 17:44] LABS: INFLUENZA A SCREEN NEGATIVE (NEGATIVE); INFLUENZA B SCREEN NEGATIVE (NEGATIVE)
[2016-05-07 04:58] LABS: BE (BASE EXCESS) -2.3 MEQ/L (0 +/- 2.5); BIPAP 16/6 cm.H2O; CARBOXYHEMOGLOBIN 0.9 % (0-3); HCO3 (ACTUAL BICARBONATE) 23.6 MEQ/L (23-27); HEMOBLOGIN CONTENT 9.8 G/DL (12-16); INSTRUMENT SERIAL # 8083; METHEMOGLOBIN 0.1 % (0-3); O2 CONTENT 13.4 VOL% (18-24); OPERATOR ID 334499; PCO2 (CO2 TENSION) 45 MMHG (35-45); PO2 (O2 TENSION) 90 MMHG (79-93); SAMPLE Arterial; pH 7.33 (7.37-7.43)
[2016-05-07 06:08] LABS: HEMATOCRIT 28.7 % (36.0-48.0); HEMOGLOBIN 9.2 g/dL (12.0-16.0); MANUAL DIFF YES %; MEAN CORPUS HGB CONC 32.1 g/dL (32.0-36.0); MEAN CORPUSCULAR HEMOGLOB 26.7 pg (26.0-34.0); MEAN CORPUSCULAR VOLUME 83.2 fL (80-100); MEAN PLATELET VOLUME 9.7 fL (9.2-13.0); PLATELET COUNT 400 10/3/uL (150-400); RBC DISTRIBUTION WIDTH 16.8 % (12.0-16.0); RED CELL COUNT 3.45 10/6/uL (4.0-5.6); WHITE BLOOD CELLS 20.8 10/3/uL (4.5-10.5)
[2016-05-07 06:19] LABS: CALCIUM, SERUM 8.8 MG/DL (8.5-10.4); CHLORIDE, SERUM 94 MMOL/L (96-112); CO2 (CARBON DIOXIDE) 24 MMOL/L (24-34); CREATININE 1.63 MG/DL (0.55-1.02); GFR AFRICAN AMERICAN 38 ML/MIN (>=60); GFR NON AFRICAN AMERICAN 33 ML/MIN (>=60); GLUCOSE, SERUM 128 MG/DL (60-99); POTASSIUM, SERUM 5.3 MMOL/L (3.5-5.3); SODIUM, SERUM 130 MMOL/L (135-148)
[2016-05-07 06:20] LABS: BUN (BLOOD UREA NITROGEN) 39 MG/DL (6-23)
[2016-05-07 06:55] LABS: BAND NEUTROPHILS 11 %; EOSINOPHILS 2 %; EOSINOPHILS ABSOLUTE (CALC) 0.42 10/3/uL (0.0-0.53); IMMATURE GRANS ABSOLUTE (CALC) 0.42 10/3/uL (0.0-0.11); LYMPHOCYTES 8 %; LYMPHOCYTES ABSOLUTE (CALC) 1.66 10/3/uL (0.67-4.30); METAMYELOCYTES 2 %; MONOCYTES 6 %; MONOCYTES ABSOLUTE (CALC) 1.25 10/3/uL (0.21-1.20); NEUTROPHILS ABSOLUTE (CALC) 17.06 10/3/uL (2.02-8.40); PLATELET ESTIMATE ADQ (ADEQUATE); SEGMENTED NEUTROPHIL (0) 71 %; TOTAL NUCLEATED CELLS 100
[2016-05-07 06:56] LABS: POLYCHROMASIA 1+ (2-5/OIF) (0-1/OIF); TOXIC GRANULATION 1+
[2016-05-08 06:10] LABS: HEMATOCRIT 28.7 % (36.0-48.0); HEMOGLOBIN 9.2 g/dL (12.0-16.0); MEAN CORPUS HGB CONC 32.1 g/dL (32.0-36.0); MEAN CORPUSCULAR HEMOGLOB 26.5 pg (26.0-34.0); MEAN CORPUSCULAR VOLUME 82.7 fL (80-100); MEAN PLATELET VOLUME 9.7 fL (9.2-13.0); PLATELET COUNT 385 10/3/uL (150-400); RBC DISTRIBUTION WIDTH 17.1 % (12.0-16.0); RED CELL COUNT 3.47 10/6/uL (4.0-5.6); WHITE BLOOD CELLS 21.4 10/3/uL (4.5-10.5)
[2016-05-08 06:12] LABS: MANUAL DIFF YES %
[2016-05-08 06:29] LABS: BUN (BLOOD UREA NITROGEN) 46 MG/DL (6-23); CHLORIDE, SERUM 97 MMOL/L (96-112); CO2 (CARBON DIOXIDE) 23 MMOL/L (24-34); CREATININE 2.08 MG/DL (0.55-1.02); GFR AFRICAN AMERICAN 28 ML/MIN (>=60); GFR NON AFRICAN AMERICAN 24 ML/MIN (>=60); GLUCOSE, SERUM 105 MG/DL (60-99); POTASSIUM, SERUM 5.8 MMOL/L (3.5-5.3); SODIUM, SERUM 127 MMOL/L (135-148)
[2016-05-08 08:08] LABS: ANISOCYTOSIS 1+ (5-10/OIF) (0-5/OIF); BAND NEUTROPHILS 2 %; EOSINOPHILS 1 %; EOSINOPHILS ABSOLUTE (CALC) 0.21 10/3/uL (0.0-0.53); HYPOCHROMIA 1+ (3-10/OIF) (0-2/OIF); LYMPHOCYTES 14 %; MONOCYTES 5 %; MONOCYTES ABSOLUTE (CALC) 1.07 10/3/uL (0.21-1.20); NEUTROPHILS ABSOLUTE (CALC) 17.12 10/3/uL (2.02-8.40); PLATELET ESTIMATE ADQ (ADEQUATE); SEGMENTED NEUTROPHIL (0) 78 %; TOTAL NUCLEATED CELLS 100
[2016-05-09 04:41] LABS: ALLENS TEST Pos; BE (BASE EXCESS) -4.1 MEQ/L (0 +/- 2.5); BIPAP 16/6 cm.H2O; CARBOXYHEMOGLOBIN 0.8 % (0-3); HCO3 (ACTUAL BICARBONATE) 21.4 MEQ/L (23-27); HEMOBLOGIN CONTENT 9.1 G/DL (12-16); INSTRUMENT SERIAL # 8083; METHEMOGLOBIN 0.2 % (0-3); O2 CONTENT 12.2 VOL% (18-24); OPERATOR ID 13415; PCO2 (CO2 TENSION) 41 MMHG (35-45); PO2 (O2 TENSION) 79 MMHG (79-93); SAMPLE Arterial; pH 7.34 (7.37-7.43)
[2016-05-09 06:28] LABS: HEMATOCRIT 26.8 % (36.0-48.0); HEMOGLOBIN 8.5 g/dL (12.0-16.0); MEAN CORPUS HGB CONC 31.7 g/dL (32.0-36.0); MEAN PLATELET VOLUME 10.1 fL (9.2-13.0); PLATELET COUNT 399 10/3/uL (150-400); RBC DISTRIBUTION WIDTH 17.1 % (12.0-16.0); RED CELL COUNT 3.27 10/6/uL (4.0-5.6); WHITE BLOOD CELLS 16.1 10/3/uL (4.5-10.5)
[2016-05-09 06:33] LABS: MANUAL DIFF YES %
[2016-05-09 06:48] LABS: ANISOCYTOSIS 1+ (5-10/OIF) (0-5/OIF); BAND NEUTROPHILS 14 %; CALCIUM, SERUM 8.9 MG/DL (8.5-10.4); CHLORIDE, SERUM 98 MMOL/L (96-112); CO2 (CARBON DIOXIDE) 23 MMOL/L (24-34); CREATININE 2.54 MG/DL (0.55-1.02); GFR AFRICAN AMERICAN 22 ML/MIN (>=60); GFR NON AFRICAN AMERICAN 19 ML/MIN (>=60); GLUCOSE, SERUM 115 MG/DL (60-99); LYMPHOCYTES 10 %; LYMPHOCYTES ABSOLUTE (CALC) 1.61 10/3/uL (0.67-4.30); MONOCYTES 5 %; MONOCYTES ABSOLUTE (CALC) 0.81 10/3/uL (0.21-1.20); NEUTROPHILS ABSOLUTE (CALC) 13.69 10/3/uL (2.02-8.40); PLATELET ESTIMATE ADQ (ADEQUATE); SEGMENTED NEUTROPHIL (0) 71 %; SODIUM, SERUM 131 MMOL/L (135-148); TOTAL NUCLEATED CELLS 100
[2016-05-09 06:49] LABS: BUN (BLOOD UREA NITROGEN) 55 MG/DL (6-23); POTASSIUM, SERUM 6.3 MMOL/L (3.5-5.3)
[2016-05-09 06:50] LABS: POLYCHROMASIA 1+ (2-5/OIF) (0-1/OIF)
[2016-05-09 13:50] LABS: POTASSIUM, SERUM 5.5 MMOL/L (3.5-5.3)
[2016-05-09 14:47] LABS: PROCALCITONIN 0.21 ng/mL (<0.5)
[2016-05-09 17:53] LABS: ASCORBIC ACID (UR NOT ORDER) NEG (NEG); BILIRUBIN, URINE NEGATIVE (NEG); KETONE, URINE NEGATIVE (NEG); LEUKOCYTE ESTERASE(NOT OR NEG (NEG); WBC (NOT ORDERED) (RFLEX) 3 (0-5)
[2016-05-10 05:24] LABS: BASOPHILS 0.4 %; BASOPHILS ABSOLUTE 0.04 10/3/uL (0.0-0.16); EOSINOPHILS 2.6 %; EOSINOPHILS ABSOLUTE 0.28 10/3/uL (0.0-0.53); HEMATOCRIT 28.3 % (36.0-48.0); HEMOGLOBIN 8.9 g/dL (12.0-16.0); IMMATURE GRANULOCYTES 2.6 %; IMMATURE GRANULOCYTES ABSOLUTE 0.29 10/3/uL (0.0-0.11); LYMPHOCYTES 16.7 %; LYMPHOCYTES ABSOLUTE 1.83 10/3/uL (0.67-4.30); MEAN CORPUS HGB CONC 31.4 g/dL (32.0-36.0); MEAN CORPUSCULAR HEMOGLOB 26.6 pg (26.0-34.0); MEAN PLATELET VOLUME 9.8 fL (9.2-13.0); NEUTROPHILS 67.7 %; NEUTROPHILS ABSOLUTE 7.42 10/3/uL (2.02-8.40); PLATELET COUNT 333 10/3/uL (150-400); RBC DISTRIBUTION WIDTH 16.9 % (12.0-16.0); RED CELL COUNT 3.34 10/6/uL (4.0-5.6)
[2016-05-10 05:26] LABS: MANUAL DIFF NO %; MEAN CORPUSCULAR VOLUME 84.7 fL (80-100)
[2016-05-10 05:44] LABS: ALBUMIN 2.4 G/DL (3.5-5.0); BUN (BLOOD UREA NITROGEN) 57 MG/DL (6-23); CALCIUM, SERUM 8.8 MG/DL (8.5-10.4); CHLORIDE, SERUM 99 MMOL/L (96-112); CO2 (CARBON DIOXIDE) 23 MMOL/L (24-34); CREATININE 2.31 MG/DL (0.55-1.02); GFR AFRICAN AMERICAN 25 ML/MIN (>=60); GFR NON AFRICAN AMERICAN 21 ML/MIN (>=60); GLUCOSE, SERUM 100 MG/DL (60-99); POTASSIUM, SERUM 5.5 MMOL/L (3.5-5.3); SODIUM, SERUM 132 MMOL/L (135-148)
[2016-05-10 06:03] LABS: PHOSPHORUS, SERUM 4.7 MG/DL (2.5-4.5)
[2016-05-11 07:12] LABS: BASOPHILS 0.4 %; BASOPHILS ABSOLUTE 0.04 10/3/uL (0.0-0.16); EOSINOPHILS 2.2 %; EOSINOPHILS ABSOLUTE 0.24 10/3/uL (0.0-0.53); HEMATOCRIT 27.4 % (36.0-48.0); HEMOGLOBIN 8.4 g/dL (12.0-16.0); IMMATURE GRANULOCYTES 1.9 %; IMMATURE GRANULOCYTES ABSOLUTE 0.21 10/3/uL (0.0-0.11); LYMPHOCYTES 20.7 %; LYMPHOCYTES ABSOLUTE 2.29 10/3/uL (0.67-4.30); MEAN CORPUS HGB CONC 30.7 g/dL (32.0-36.0); MEAN CORPUSCULAR HEMOGLOB 25.8 pg (26.0-34.0); MEAN PLATELET VOLUME 10.5 fL (9.2-13.0); MONOCYTES 9.4 %; MONOCYTES ABSOLUTE 1.04 10/3/uL (0.21-1.20); NEUTROPHILS 65.4 %; NEUTROPHILS ABSOLUTE 7.26 10/3/uL (2.02-8.40); NUCLEATED RED BLOOD CELLS 0.2 /100WBC (0-0); PLATELET COUNT 341 10/3/uL (150-400); RBC DISTRIBUTION WIDTH 16.8 % (12.0-16.0); RED CELL COUNT 3.26 10/6/uL (4.0-5.6); WHITE BLOOD CELLS 11.1 10/3/uL (4.5-10.5)
[2016-05-11 07:14] LABS: MANUAL DIFF NO %
[2016-05-11 07:15] LABS: ALBUMIN 2.3 G/DL (3.5-5.0); BUN (BLOOD UREA NITROGEN) 37 MG/DL (6-23); CALCIUM, SERUM 8.2 MG/DL (8.5-10.4); CHLORIDE, SERUM 106 MMOL/L (96-112); CO2 (CARBON DIOXIDE) 22 MMOL/L (24-34); CREATININE 1.26 MG/DL (0.55-1.02); GFR AFRICAN AMERICAN 52 ML/MIN (>=60); GFR NON AFRICAN AMERICAN 45 ML/MIN (>=60); GLUCOSE, SERUM 114 MG/DL (60-99); PHOSPHORUS, SERUM 3.8 MG/DL (2.5-4.5); SODIUM, SERUM 139 MMOL/L (135-148)
[2016-05-12 20:52] LABS: BASOPHILS 0.4 %; BASOPHILS ABSOLUTE 0.06 10/3/uL (0.0-0.16); EOSINOPHILS 2.4 %; EOSINOPHILS ABSOLUTE 0.36 10/3/uL (0.0-0.53); HEMATOCRIT 28.8 % (36.0-48.0); HEMOGLOBIN 9.2 g/dL (12.0-16.0); IMMATURE GRANULOCYTES 1.8 %; IMMATURE GRANULOCYTES ABSOLUTE 0.28 10/3/uL (0.0-0.11); LYMPHOCYTES 15.4 %; LYMPHOCYTES ABSOLUTE 2.35 10/3/uL (0.67-4.30); MEAN CORPUS HGB CONC 31.9 g/dL (32.0-36.0); MEAN CORPUSCULAR HEMOGLOB 26.3 pg (26.0-34.0); MEAN CORPUSCULAR VOLUME 82.3 fL (80-100); MEAN PLATELET VOLUME 9.3 fL (9.2-13.0); MONOCYTES 6.1 %; MONOCYTES ABSOLUTE 0.94 10/3/uL (0.21-1.20); NEUTROPHILS 73.9 %; NEUTROPHILS ABSOLUTE 11.31 10/3/uL (2.02-8.40); PLATELET COUNT 401 10/3/uL (150-400); RBC DISTRIBUTION WIDTH 16.9 % (12.0-16.0); WHITE BLOOD CELLS 15.3 10/3/uL (4.5-10.5)
[2016-05-12 20:53] LABS: MANUAL DIFF NO %
[2016-05-12 21:13] LABS: ALBUMIN 2.5 G/DL (3.5-5.0); BUN (BLOOD UREA NITROGEN) 22 MG/DL (6-23); CALCIUM, SERUM 9.1 MG/DL (8.5-10.4); CHLORIDE, SERUM 100 MMOL/L (96-112); CO2 (CARBON DIOXIDE) 25 MMOL/L (24-34); CREATININE 1.14 MG/DL (0.55-1.02); GFR AFRICAN AMERICAN 58 ML/MIN (>=60); GFR NON AFRICAN AMERICAN 50 ML/MIN (>=60); GLUCOSE, SERUM 216 MG/DL (60-99); PHOSPHORUS, SERUM 2.8 MG/DL (2.5-4.5); POTASSIUM, SERUM 4.5 MMOL/L (3.5-5.3); SODIUM, SERUM 134 MMOL/L (135-148)
[2016-09-01] MEDS ORDERED: COREG6 PO (19:30)
[2016-09-01] MEDS ORDERED: IMDUR60 PO (19:31)
[2016-09-01] MEDS ORDERED: BUSPAR5 PO (19:31)
[2016-09-01] MEDS ORDERED: ABILIFY5 PO (19:31)
[2016-09-01] MEDS ORDERED: HYGROTON 25 MG25 MG PO (19:32)
[2016-09-01] MEDS ORDERED: PLAVIX PO (19:33)
[2016-09-01] MEDS ORDERED: CYMBALTA60 PO (19:33)
[2016-09-01] MEDS ORDERED: LAN25 PO (19:33)
[2016-09-01] MEDS ORDERED: LEVEMIR SC (19:34)
[2016-09-01] MEDS ORDERED: NEUR600 PO (19:34)
[2016-09-01] MEDS ORDERED: NOVOLOG SC (19:37)
[2016-09-01] MEDS ORDERED: CRESTOR5 MG PO (19:37)
[2016-09-01] MEDS ORDERED: SYN.05 PO (19:37)
[2016-09-01] MEDS ORDERED: RYTHMOL150 MG PO (19:37)
[2016-09-01] MEDS ORDERED: NORCO1 TA1 PO (19:38)
[2016-09-01] MEDS ORDERED: TRAZ50 PO (19:38)
[2016-09-01] MEDS ORDERED: *UNABLE1 (19:39)
[2016-09-02] MEDS ORDERED: SINGULAIR1 PO (12:18)
[2016-09-02] MEDS ORDERED: B121000P IM (12:21)
[2016-09-02] MEDS ORDERED: ASAB PO (12:21)
[2016-09-02] MEDS ORDERED: NEUR600 PO (12:22)
[2016-09-02] MEDS ORDERED: BIST PO (12:24)
[2016-09-02] MEDS ORDERED: MIRALAX POWDER1 PKT PO (12:24)
[2016-09-02] MEDS ORDERED: ZANTAC300 MG PO (12:25)
[2016-09-02] MEDS ORDERED: ANOROELLIPTA INH (12:28)
[2016-09-02] MEDS ORDERED: VENTOLIN HFA INH (12:28)
[2016-09-02] MEDS ORDERED: ACET500CAP PO (12:31)
[2016-09-02] MEDS ORDERED: ADVIL PO (12:31)
[2016-09-02] MEDS ORDERED: GAMMAGARD (12:32)
[2016-09-02] MEDS ORDERED: ALBUTEROL0.083 % INH (12:32)
== END 2016-05-13 18:33 | DRG 871 ==
LOC: ER 14:00 → IMCU 19:20 → 1SO 05-01 17:08
PROVIDERS: Emergency Medicine; Hospitalist; Internal Medicine; Internal Medicine Nephrology; Registered Nurse
PROC: 5A09457 Assistance with Respiratory Ventilation, 24-96 Consecutive Hours, Continuous Positive Airway Pressure (ICD-10-PCS; principal; 2016-04-29)
DX: A41.9 Sepsis, unspecified organism (principal); J69.0 Pneumonitis due to inhalation of food and vomit; J96.21 Acute and chronic respiratory failure with hypoxia; G93.41 Metabolic encephalopathy; N17.9 Acute kidney failure, unspecified; D83.9 Common variable immunodeficiency, unspecified; J18.9 Pneumonia, unspecified organism; J96.22 Acute and chronic respiratory failure with hypercapnia; I13.0 Hypertensive heart and chronic kidney disease with heart failure and stage 1 through stage 4 chronic kidney disease, or unspecified chronic kidney disease; I50.32 Chronic diastolic (congestive) heart failure; J44.1 Chronic obstructive pulmonary disease with (acute) exacerbation; N39.0 Urinary tract infection, site not specified; F13.20 Sedative, hypnotic or anxiolytic dependence, uncomplicated; E66.2 Morbid (severe) obesity with alveolar hypoventilation; F11.20 Opioid dependence, uncomplicated; J44.0 Chronic obstructive pulmonary disease with (acute) lower respiratory infection; I95.9 Hypotension, unspecified; E11.22 Type 2 diabetes mellitus with diabetic chronic kidney disease; E11.65 Type 2 diabetes mellitus with hyperglycemia; N18.3 Chronic kidney disease, stage 3 (moderate); Z99.81 Dependence on supplemental oxygen; I48.0 Paroxysmal atrial fibrillation; Y95 Nosocomial condition; E78.5 Hyperlipidemia, unspecified; F17.210 Nicotine dependence, cigarettes, uncomplicated; Z68.35 Body mass index [BMI] 35.0-35.9, adult; I87.2 Venous insufficiency (chronic) (peripheral); Z95.1 Presence of aortocoronary bypass graft; E03.9 Hypothyroidism, unspecified; E87.5 Hyperkalemia; R32 Unspecified urinary incontinence; F41.1 Generalized anxiety disorder; D63.1 Anemia in chronic kidney disease; R65.20 Severe sepsis without septic shock; F32.9 Major depressive disorder, single episode, unspecified; I25.10 Atherosclerotic heart disease of native coronary artery without angina pectoris; K59.00 Constipation, unspecified; M06.9 Rheumatoid arthritis, unspecified; Z79.01 Long term (current) use of anticoagulants; Z79.82 Long term (current) use of aspirin; Z79.4 Long term (current) use of insulin; Z79.84 Long term (current) use of oral hypoglycemic drugs; Z79.899 Other long term (current) drug therapy; Z98.61 Coronary angioplasty status; Z87.440 Personal history of urinary (tract) infections; Z88.5 Allergy status to narcotic agent; Z88.2 Allergy status to sulfonamides; Z91.81 History of falling
CPT/HCPCS: 36600; 71010; 71020; 71260; 74176; 76775; 80048; 80053; 80069; 80202; 81001; 82570; 82805; 82962; 83605; 83690; 83735; 83880; 84100; 84132; 84145; 84156; 84300; 85025; 85048; 87040; 87077; 87086; 87186; 87641; 87804; 92610-GN; 93975; 94640; 94660; 96365; 96366; 96375; 97110-GO; 97110-GP; 97162-GP; 97166-GO; 97530-GP; 99291; A9270-GY; G8978-CL-GP; G8979-CK-GP; G8987-CK-GO; G8988-CJ-GO; G8996-CI-GN; G8997-CI-GN; G8998-CI-GN; J0360; J0692; J1980; J2405; J2543; J2920; J3370; Q9967